=== PATIENT | male | born 1995 | race Caucasian/White ===

== ENCOUNTER 2020-10-27 10:43 | Outpatient (CLI) | payer OTHER, SELFPAY ==
--- NOTE | ~2020-10-27 | XR_ITS ---
XR abdomen/kub 1V 10/27/2020 11:00 INDICATION: Constipation TECHNIQUE: KUB COMPARISON: None FINDINGS: Bowel gas pattern is normal. Large amount of retained fecal material in the colon. There is no evidence of free air, mass, organomegaly, ascites or obstruction. No abnormal calculi are seen. The bones appear intact. IMPRESSION: 1: No acute abdominal abnormality identified. Reviewed, dictated and finalized at location B.
== END 2020-10-27 10:44 | disposition home or self-care (01) ==
PROVIDERS: PCP Family Medicine; Visit Provider Family Medicine
DX: K59.00 Constipation, unspecified (principal)
CPT/HCPCS: 74018

== ENCOUNTER 2021-02-15 17:47 | Emergency (ER) | payer OTHER, SELFPAY ==
[2021-02-15 17:49] VITALS: BP 130/83; PULSE 88; RESP 16; TEMP 36.7; O2SAT 98
[2021-02-15 18:32] VITALS: BP 136/80; PULSE 88; RESP 18; TEMP 36.8; O2SAT 99
--- NOTE | 2021-02-15 19:43 | PC.NURSE ---
Pt ambulate in the hallway with SpO2, maintains 99% throughout walk and with conversation.
--- NOTE | 2021-02-15 20:22 | ED.GENADULT ---
HPI - General Adult General Chief complaint: Headache <Eric Moffett PA-C - Last Filed: 02/15/21 22:11> Stated complaint: headache x 1 yr <Eric Moffett PA-C - Last Filed: 02/15/21 22:11> Time Seen by Provider: 02/15/21 18:44 <Eric Moffett PA-C - Last Filed: 02/15/21 22:11> Source: patient <MARCY Benitez Last Filed: 02/15/21 22:11> Mode of arrival: ambulatory <MARCY Benitez Last Filed: 02/15/21 22:11> Limitations: no limitations <MARCY Benitez Last Filed: 02/15/21 22:11> History of Present Illness HPI narrative: Patient presents for evaluation stating that when he talks he feels as if he is not getting enough oxygen to his brain. Patient states that he has been having the sensation for over a year. Patient reports that he has seen his primary care provider regarding his concern and has been diagnosed with anxiety. Patient states that his anxiety medications have been increased which has increased his feelings of decreased oxygenation with conversation. Patient denies any syncope, chest pain. Patient denies any head trauma. Patient denies any symptoms at rest. Patient denies any neurological deficits. <Eric Moffett PA-C - Last Filed: 02/15/21 22:11> Related Data Home medications: Home Medications Medication Instructions Recorded Confirmed risperidone 0.25 mg tablet 0.25 mg PO DAILY 01/18/21 01/18/21 fluoxetine 40 mg PO DAILY 02/15/21 <Eric Moffett PA-C - Last Filed: 02/15/21 22:11> Allergies/adverse reactions: Allergies Allergy/AdvReac Type Severity Reaction Status Date / Time No Known Allergies Allergy Verified 01/18/21 14:01 <MARCY Benitez Last Filed: 02/15/21 22:11> Review of Systems Review of Systems: CONSTITUTIONAL: Denies fever, chills, or sweats. EYES: Denies visual changes, redness, or discharge. ENT: Denies rhinorrhea, congestion, sore throat, or otalgia. CARDIOVASCULAR: Denies chest pain, palpitations, or edema. RESPIRATORY: Denies cough or dyspnea. GASTROINTESTINAL: Denies abdominal pain, nausea, vomiting, or diarrhea. GENITOURINARY: Denies dysuria or hematuria. SKIN: Denies rash or itching. MUSCULOSKELETAL: Denies back pain, joint pain, or myalgia. NEUROLOGIC: Denies headache, numbness, dizziness, or weakness. PSYCHIATRIC: Denies anxiety or depression. <Eric Moffett PA-C - Last Filed: 02/15/21 22:11> [facility] Past Medical History Medical History: Medical History Urinary frequency <Eric Moffett PA-C - Last Filed: 02/15/21 22:11> Family History Family History: Family History Mother Family history of elevated blood lipids, Onset Age: 46 Father Family history of diabetes mellitus in first degree relative, Onset Age: 48 <Eric Moffett PA-C - Last Filed: 02/15/21 22:11> Social History Social History: Social History Tobacco type: cigarettes Second hand tobacco smoke exposure: No Smoking end date: 05/07/13 Alcohol intake: never Substance use: never Substance use type: does not use Gender identity (if verbalized by the patient): Male <Eric Moffett PA-C - Last Filed: 02/15/21 22:11> Exam Narrative: GENERAL: Well-appearing, well-nourished, and in no acute distress. HEAD: Normocephalic, atraumatic. EYES: PERRLA and EOMI. ENT: Nares clear, no rhinorrhea or epistaxis. Mucous membranes moist. Oropharynx without tonsillar hypertrophy exudate or other lesions. Bilateral TMs pearly rosario nonbulging NECK: Supple. No adenopathy or masses. ROM intact. CHEST: Clear to auscultation. No respiratory distress. No wheezes rales or rhonchi. Speaks in complete sentences. No tachypnea or signs of respiratory distress. HEART: Regular rate and rhythm. No murmur heard. Normal peripheral pulses. EXTREMITIES
[2021-02-15 20:35] VITALS: RESP 18; O2SAT 99
== END 2021-02-15 20:35 | disposition home or self-care (01) ==
PROVIDERS: Emergency Provider Emergency Medicine; PCP Family Medicine
DX: R51.9 Headache, unspecified (principal); F41.9 Anxiety disorder, unspecified
CPT/HCPCS: 99283

== ENCOUNTER → 2021-06-03 09:30 | Outpatient (CLI) | payer BC, SELFPAY ==
--- NOTE | ~2021-06-03 | XR_ITS ---
EXAMINATION: XR lumbar spine 2-3V EXAM DATE: 06/03/2021 10:57 INDICATION: Low back pain . TECHNIQUE: Lumber spine frontal, lateral, lateral L5-S1 projections for interpretation. There is no prior study for comparison. FINDINGS: The vertebral bodies are aligned in the AP dimension. Vertebral body and disc heights are well-maintained. No spondylolysis. Paraspinal soft tissue is unremarkable. Sacrum, sacroiliac joints, sacral arcuate lines are intact. Probably mild lower lumbar facet arthropathy. IMPRESSION: Probable mild lower lumbar facet arthropathy. Reviewed, dictated and finalized at location A. IC COORDINATOR
--- NOTE | ~2021-06-03 | XR_ITS ---
EXAMINATION: XR thoracic spine 3V EXAM DATE: 06/03/2021 10:56 INDICATION: M54.6 - Pain in thoracic spine. TECHNIQUE: Frontal and lateral projections of the thoracic spine as well as lateral swimmers projecti on of the upper thoracic spine for interpretation. There is no prior study for comparison. FINDINGS: There is mild mid thoracic dextroscoliosis. The vertebral bodies are aligned in the AP dim ension. Vertebral body and disc heights are well-maintained. Paraspinal soft tissue is unremarkable. There are no bony erosions identified. IMPRESSION: Mild thoracic dextroscoliosis. Reviewed, dictated and finalized at location A. OR JAVA SOFTWARE ENGINEER
== END ==
PROVIDERS: PCP Family Medicine; Visit Provider Family Medicine
DX: M54.50 Low back pain, unspecified (principal); M54.6 Pain in thoracic spine
CPT/HCPCS: 72072; 72100

== ENCOUNTER 2021-06-03 23:06 | Emergency (ER) | payer BC, SELFPAY ==
--- NOTE | ~2021-06-03 | CT_ITS ---
EXAMINATION: CTA chest PE protocol DATE: 06/04/2021 08:41 INDICATION: Left-sided pleuritic chest pain. TECHNIQUE: Computed tomography angiography (CTA) of the chest was performed with 100 mL Omnipaque-350 intravenous contrast timed to evaluate the pulmonary arteries. Coronal maximum intensity projection 3D-reconstructions were created by the technologist. Automated exposure control and iterative reconst ruction technique were employed. The dose-length product was 170.20 mGy-cm. COMPARISON: Chest 2 views 06/04/2021 FINDINGS: The lungs demonstrate minimal atelectasis. No pleural effusion. The heart size is normal. N o pericardial effusion. There is no pulmonary embolus. There is levoscoliosis of upper thoracic spine , dextrocurvature of mid thoracic spine, and levocurvature of thoracolumbar spine. IMPRESSION: 1. No pulmonary embolus. Reviewed, dictated and finalized at location A. DIE MAKER IMPRESSION: 1. No pulmonary embolus.
--- NOTE | ~2021-06-03 | XR_ITS ---
EXAMINATION: XR chest 2V DATE: 06/04/2021 02:33 INDICATION: Left rib pain. Dyspnea. TECHNIQUE: Frontal and lateral views of the chest were obtained. COMPARISON: Chest 2 views 07/08/2014 FINDINGS: The chest demonstrates clear lungs without pneumonia, pleural effusion, or pneumothorax. Th e heart size is normal. IMPRESSION: 1. No acute cardiopulmonary disease. Reviewed, dictated and finalized at location A. OMER LEADER
[2021-06-04 01:46] VITALS: BP 135/92; PULSE 130; RESP 18; TEMP 36.6; O2SAT 97
[2021-06-04 05:47] VITALS: BP 116/96; PULSE 87; RESP 16; O2SAT 100
--- NOTE | 2021-06-04 06:22 | ECG_ITS ---
Measurements Intervals [place] Rate: 85 P: 77 AK: 146 QRS: 64 QRSD: 101 T: 48 QT: 345 QTc: 412 Interpretive Statements SINUS RHYTHM INCOMPLETE RIGHT BUNDLE BRANCH BLOCK ST ELEVATION IN DIFFUSE LEADS- PROBABLY EARLY REPOLARIZATION ABNORMALITY BASELINE ARTIFACT- I, II, III, AVR, AVL, AVF, V1-V3 BORDERLINE ECG Electronically Signed On 06-04-2021 8:02:00 RUFFLING MACHINE OPERATOR by Mesfin Lares D.O.
--- NOTE | 2021-06-04 06:23 | ED.GENADULT ---
HPI - General Adult General Chief complaint: Back Pain/Injury Stated complaint: back swelling Time Seen by Provider: 06/04/21 06:15 History of Present Illness HPI narrative: Patient is a 26-year-old gentleman who presents the emergency department with chief complaint of back and chest pain. The patient reports that for the last week he has had pain in the paraspinous muscles of his back. The patient states he saw his primary care physician who started him on steroids and muscle relaxers patient states that he has noticed that the area of his back is been swollen there and reports that it hurts now whenever he takes a deep breath. The patient states he believes this began whenever he was doing prior and was forcefully bowing forward. Patient states that the pain is sharp reports that it is worsened with inspiration and improved with rest. Related Data Home Medications Medication Instructions Recorded Confirmed risperidone 0.25 mg tablet 0.25 mg PO DAILY 01/18/21 05/30/21 fluoxetine 40 mg PO DAILY 02/15/21 05/30/21 Allergies Allergy/AdvReac Type Severity Reaction Status Date / Time No Known Allergies Allergy Verified 06/04/21 05:49 Review of Systems Review of Systems: A 10 system review of systems was completed on the patient and is negative except for what is stated in the HPI. Nursing and ancillary documentation was reviewed. [facility] Past Medical History Medical History Urinary frequency Family History Family History Mother Family history of elevated blood lipids, Onset Age: 46 Father Family history of diabetes mellitus in first degree relative, Onset Age: 48 Social History Social History (Updated 05/30/21 @ 10:52 by Ana Viera) Social History: Single Smoking status: Former smoker Tobacco type: cigarettes Second hand tobacco smoke exposure: No Smoking end date: 05/07/13 Alcohol intake: never Substance use: never Substance use type: does not use Additional occupation/education comments: Pt had to drop out of school due to health issues. Gender identity (if verbalized by the patient): Male Sexual Orientation (if Verbalized by the Patient): Straight or Heterosexual Course Vital Signs Vital signs: Vital Signs Temperature 36.6 C 06/04/21 01:46 Pulse Rate 130 H 06/04/21 01:46 Respiratory Rate 18 06/04/21 01:46 Blood Pressure 135/92 H 06/04/21 01:46 Pulse Oximetry 97 06/04/21 01:46 Temperature 36.6 C 06/04/21 01:46 Pulse Rate 87 06/04/21 05:47 Respiratory Rate 16 06/04/21 05:47 Blood Pressure 116/96 H 06/04/21 05:47 Pulse Oximetry 100 06/04/21 05:47 Medical Decision Making Vital Signs Vital Signs: Vital Signs Temperature 36.6 C 06/04/21 01:46 Pulse Rate 130 H 06/04/21 01:46 Respiratory Rate 18 06/04/21 01:46 Blood Pressure 135/92 H 06/04/21 01:46 Pulse Oximetry 97 06/04/21 01:46 Temperature 36.6 C 06/04/21 01:46 Pulse Rate 87 06/04/21 05:47 Respiratory Rate 16 06/04/21 05:47 Blood Pressure 116/96 H 06/04/21 05:47 Pulse Oximetry 100 06/04/21 05:47 Discharge Plan Discharge Prescriptions: No Action risperidone 0.25 mg tablet 0.25 mg PO DAILY RF: 0 methylprednisolone [Medrol (Dionisio)] 4 mg tablets,dose pack See Rx Instructions PO PER PKG DIR 6 Days Qty: 21 RF: 0 cyclobenzaprine 10 mg tablet 10 mg PO TID PRN (Reason: muscle spasm) Qty: 21 RF: 0 fluoxetine 20 mg tablet 40 mg PO DAILY RF: 0
[2021-06-04 06:50] LABS: Basophils Absolute Auto 0.1 K/mm3 (0.0-0.1); Basophils Percent Auto 0.8 % (0.2-1.2); Eosinophils Absolute Auto 0.1 K/mm3 (0-0.3); Eosinophils Percent Auto 1.1 % (0-4.4); Hematocrit 45.9 % (42.0-52.0); Hemoglobin 16.5 g/dL (14.0-18.0); Immature Granulocyte Absolute 0.03 K/mm3 (0.00-0.031); Immature Granulocyte Percent A 0.3 % (0-0.5); Immature Platelet Fraction Pct 6.5 % (0.9-11.2); Lymphocytes Absolute Auto 2.11 K/mm3 (0.9-3.2); Lymphocytes Percent Auto 23.6 % (18.3-44.2); Mean Corpuscular HGB Conc 35.9 g/dl (32-36); Mean Corpuscular Hemoglobin 30.7 pg (26-34); Mean Corpuscular Volume 85.5 fl (80-100); Mean Platelet Volume 10.2 fl (7.4-10.4); Monocytes Absolute Auto 0.5 K/mm3 (0.1-0.6); Monocytes Percent Auto 5.5 % (2.6-8.5); Neutrophils Absolute Auto 6.1 K/mm3 (1.3-6.7); Neutrophils Percent Auto 68.7 % (45.5-73.1); Platelet Count Result 137 k/mm3 (150-375); Red Blood Count 5.37 M/mm3 (4.6-6.20); Red Cell Distribution Width 11.9 % (11.5-14.5); White Blood Count 8.9 K/mm3 (4.5-10.0)
[2021-06-04 06:55] LABS: Alanine Aminotransferase 14 U/L (4-50); Albumin Level 4.8 g/dL (3.5-5.1); Alkaline Phosphatase 44 U/L (38-126); Anion Gap 6 mmol/L (8-16); Aspartate Amino Transferase 19 U/L (17-59); Bilirubin,Total 0.7 mg/dL (0.2-1.3); Blood Urea Nitrogen 17 mg/dL (9-20); Calcium 9.5 mg/dL (8.4-10.2); Carbon Dioxide 26 mmol/L (22-30); Chloride 104 mmol/L (98-107); Estimated CRCL calculation 102 ml/min; Estimated Glomerular Filt Rate > 60; Glucose 97 mg/dL (65-110); Sodium 136 mmol/L (137-145)
[2021-06-04 06:57] LABS: INR 1.2; Prothrombin Time 14.6 Seconds (11.1-14.7)
[2021-06-04 06:58] LABS: Partial Thromboplastin Time 33.3 SECONDS (22.3-36.8)
[2021-06-04 07:04] LABS: NT Pro B Type Natriuretic Pept 41 pg/mL (5-100)
[2021-06-04 07:06] LABS: Troponin I < 0.012 ng/mL (0.000-0.034)
[2021-06-04 07:14] VITALS: BP 128/100; PULSE 92; RESP 18; O2SAT 100
[2021-06-04 09:45] VITALS: BP 123/85; PULSE 102; RESP 18; O2SAT 100
== END 2021-06-04 09:47 | disposition home or self-care (01) ==
PROVIDERS: Emergency Provider Emergency Medicine; PCP Family Medicine
DX: R10.9 Unspecified abdominal pain (principal); M41.9 Scoliosis, unspecified; I45.10 Unspecified right bundle-branch block; R94.31 Abnormal electrocardiogram [ECG] [EKG]
CPT/HCPCS: 36415; 71046; 71275; 80053; 83880; 84484; 85025; 85055; 85610; 85730; 87081; 87880; 93005; 99284; Q9967

== ENCOUNTER → 2021-08-31 13:33 | Outpatient (CLI) | payer BC, SELFPAY ==
--- NOTE | ~2021-08-31 | XR_ITS ---
EXAMINATION: XR lumbar spine 2-3V DATE: 08/31/2021 14:10 INDICATION: Low back pain TECHNIQUE: Anteroposterior and lateral views of the lumbar spine, and cone-down lateral view of the l umbosacral junction were obtained. COMPARISON: 06/03/2021 FINDINGS: There are 20 degrees of thoracolumbar levoscoliosis. Bone alignment is normal. There is no fracture. The intervertebral disc spaces are maintained. The bowel gas pattern is normal. The visuali zed lung bases are clear. IMPRESSION: 1. No acute osseous abnormality. 2. 20 degrees of thoracolumbar levoscoliosis. Reviewed, dictated and finalized at location F.
--- NOTE | ~2021-08-31 | XR_ITS ---
EXAMINATION: XR thoracic spine 3V DATE: 08/31/2021 14:10 INDICATION: Dorsalgia unspecified TECHNIQUE: AP, lateral and lateral swimmer's views of the thoracic spine were obtained. COMPARISON: 06/03/2021 FINDINGS: There is mild S-shaped curvature of the spine. Bone alignment is normal. There is no fractu re. The intervertebral disc spaces are maintained. IMPRESSION: 1. No acute osseous abnormality. Reviewed, dictated and finalized at location F.
== END ==
PROVIDERS: PCP Family Medicine; Visit Provider Physician Assistant
DX: M54.9 Dorsalgia, unspecified (principal)
CPT/HCPCS: 72072; 72100

== ENCOUNTER 2021-10-01 14:56 | Emergency (ER) | payer BC, SELFPAY ==
--- NOTE | ~2021-10-01 | XR_ITS ---
EXAMINATION: XR abdomen obstructive series DATE: 10/01/2021 15:51 INDICATION: Generalized abdominal pain and constipation TECHNIQUE: Supine and upright views of the abdomen. FINDINGS: 10/27/2020 The visualized lung parenchyma is normal.. There is a nonobstructive bowel gas pattern. Gas and stool are seen throughout the colon to the level of the rectum. There is no free air. There is moderate c olonic fecal loading. IMPRESSION: 1. Moderate colonic fecal loading. Reviewed, dictated and finalized at location A.
[2021-10-01 14:58] VITALS: BP 144/88; PULSE 107; RESP 18; TEMP 36.9; O2SAT 98
--- NOTE | 2021-10-01 15:33 | ED.GENADULT ---
HPI - General Adult General Chief complaint: Abdominal Pain Stated complaint: abdominal pain - malnutrition Time Seen by Provider: 10/01/21 15:15 History of Present Illness HPI narrative: 26-year-old male presenting to the emergency department for evaluation of generalized abdominal pain. Patient states for the last 2 months he has been taking Nexium due to GERD thast was worse with eating. Patient had previously been scheduled to have follow-up with Dr. Armando per GI. Patient states a few days ago he did cancel his appointment because he was feeling improved regarding his GERD symptoms. Patient states he began increasing his p.o. intake approximately 2 days ago and has since had increased lower abdominal pain. Patient states the pain is not worsened with movement, eating or drinking,. Patient states he does have some mild constipation. Related Data Home Medications Medication Instructions Recorded Confirmed fluoxetine 20 mg tablet 40 mg PO DAILY 02/15/21 09/28/21 ziprasidone HCl 20 mg capsule 40 mg PO DAILY 09/28/21 09/28/21 Allergies Allergy/AdvReac Type Severity Reaction Status Date / Time No Known Allergies Allergy Verified 09/28/21 13:01 Review of Systems Review of Systems: CONSTITUTIONAL: Denies fever, chills, or sweats. EYES: Denies visual changes, redness, or discharge. ENT: Denies rhinorrhea, congestion, sore throat, or otalgia. CARDIOVASCULAR: Denies chest pain, palpitations, or edema. RESPIRATORY: Denies cough or dyspnea. GASTROINTESTINAL: see HPI GENITOURINARY: Denies dysuria or hematuria. SKIN: Denies rash or itching. MUSCULOSKELETAL: Denies back pain, joint pain, or myalgia. NEUROLOGIC: Denies headache, numbness, or weakness. [facility] Past Medical History Medical History Urinary frequency Family History Family History Mother Family history of elevated blood lipids, Onset Age: 46 Father Family history of diabetes mellitus in first degree relative, Onset Age: 48 Social History Social History Social History: Single Smoking status: Former smoker Tobacco type: cigarettes Second hand tobacco smoke exposure: No Smoking end date: 05/07/13 Alcohol intake: never Substance use: never Substance use type: does not use Additional occupation/education comments: Pt had to drop out of school due to health issues. Gender identity (if verbalized by the patient): Male Sexual Orientation (if Verbalized by the Patient): Straight or Heterosexual Spiritual care concerns: No Exam Narrative: APPEARANCE: Well appearing, no pain, no distress, well-nourished. HEAD: normocephalic, atraumatic. EYES: PERRLA/EOMI, conjunctivae clear. NECK: Supple. No adenopathy, no masses. RESPIRATORY: Airway patent, respirations nonlabored. Clear to auscultation bilaterally, no rales, rhonchi, wheezing. CARDIOVASCULAR: Regular rate and rhythm without murmurs rubs or gallops. ABDOMINAL: Soft, nontender, nondistended, normal bowel sounds MUSCULOSKELETAL: Moves all extremities. Strength/ROM intact, No edema, No calf tenderness. NEURO: Alert. Cranial nerves II through XII intact. Grossly intact SKIN: Warm, dry. Normal Color PSYCHIATRIC: Normal affect/mood. Course Course Emergency Course: Patient was updated the results of his labs and imaging. Imaging did show constipation. Patient was educated on care for the constipation at home. Patient was also encouraged to have close follow-up with GI as previously scheduled. Patient also educated on reasons to return to the emergency department. All questions and concerns were addressed. Patient was well-appearing at time of discharge from the emergency department. Vital Signs Vital signs: Vital Signs Temperature 98.5 F 10/01/21 14:58 Pulse Rate 107 H 10/01/21 14:58 Respiratory Rate 18 10/01/21 14:58
[2021-10-01 15:42] LABS: Basophils Absolute Auto 0.1 K/mm3 (0.0-0.1); Basophils Percent Auto 0.9 % (0.2-1.2); Eosinophils Absolute Auto 0.1 K/mm3 (0-0.3); Eosinophils Percent Auto 2.6 % (0-4.4); Hematocrit 43.9 % (42.0-52.0); Lymphocytes Percent Auto 23.9 % (18.3-44.2); Mean Corpuscular HGB Conc 34.2 g/dl (32-36); Mean Corpuscular Hemoglobin 29.8 pg (26-34); Mean Corpuscular Volume 87.3 fl (80-100); Mean Platelet Volume 10.2 fl (7.4-10.4); Monocytes Absolute Auto 0.4 K/mm3 (0.1-0.6); Neutrophils Absolute Auto 3.6 K/mm3 (1.3-6.7); Neutrophils Percent Auto 65.6 % (45.5-73.1); Platelet Count Result 201 k/mm3 (150-375); Red Blood Count 5.03 M/mm3 (4.6-6.20); Red Cell Distribution Width 12.2 % (11.5-14.5); White Blood Count 5.4 K/mm3 (4.5-10.0)
--- NOTE | 2021-10-01 15:45 | PC.NURSE ---
Pt to CT scan via stretcher at this time.
[2021-10-01 15:52] LABS: Lactic Acid Reflex 1.3 mmol/L (0.7-2.0)
[2021-10-01 15:53] LABS: Alanine Aminotransferase 14 U/L (6-50); Albumin Level 4.7 g/dL (3.5-5.1); Alkaline Phosphatase 46 U/L (38-126); Anion Gap 9 mmol/L (8-16); Aspartate Amino Transferase 22 U/L (17-59); Bilirubin,Total 0.4 mg/dL (0.2-1.3); Blood Urea Nitrogen 21 mg/dL (9-20); Calcium 8.9 mg/dL (8.4-10.2); Carbon Dioxide 29 mmol/L (22-30); Chloride 103 mmol/L (98-107); Estimated CRCL calculation 97 ml/min; Estimated Glomerular Filt Rate > 60; Glucose 113 mg/dL (65-110); Lipase 69 U/L (23-300); Sodium 141 mmol/L (137-145)
[2021-10-01 16:29] VITALS: BP 132/89; PULSE 98; RESP 17; O2SAT 99
== END 2021-10-01 16:32 | disposition home or self-care (01) ==
PROVIDERS: Emergency Provider Emergency Medicine; PCP Family Medicine
DX: K59.00 Constipation, unspecified (principal); K21.9 Gastro-esophageal reflux disease without esophagitis; Z87.891 Personal history of nicotine dependence
CPT/HCPCS: 36415; 74019; 80053; 83605; 83690; 85025; 99283

== ENCOUNTER 2021-10-02 12:41 | Emergency (ER) | payer BC, SELFPAY ==
--- NOTE | ~2021-10-02 | CT_ITS ---
EXAMINATION: CT abdomen pelvis wo con DATE: 10/02/2021 14:02 INDICATION: Abdominal pain, cramping, constipation TECHNIQUE: Computed tomography (CT) of the abdomen and pelvis was performed without intravenous contr ast. Automated exposure control and iterative reconstruction technique were employed. Exam dose: 172 .99 mGy-cm total exam DLP. COMPARISON: 10/01/2021 obstructive series FINDINGS: The lung bases are clear of infiltrate or consolidation. Normal heart size. No pericardial or pleural effusion. The liver, gallbladder, bile ducts, spleen, pancreas, pancreatic duct, and adrenal glands and kidneys are unremarkable with the exception of a nonobstructing 4 mm lower pole right renal calculus. No ure teral calculus or hydroureteronephrosis. Mild prostate calcification. The urinary bladder is unremark able. Normal appendix. There is bilateral mild fecal material and some liquid stool within the colon. No bowel obstruction, pneumatosis or intraperitoneal free air is evident. Included skeletal structures are unremarkable. IMPRESSION: Normal appendix Prominent amount of fecal material and some liquid stool within the colon; no bowel obstruction or fr ee air is detected 4 mm nonobstructing lower pole right renal calculus Reviewed, dictated and finalized at Location A. Reviewed, dictated and finalized at location A. IMPRESSION: Normal appendix Prominent amount of fecal material and some liquid stool within the colon; no b owel obstruction or free air is detected 4 mm nonobstructing lower pole right renal calculus
[2021-10-02 12:43] VITALS: BP 146/72; PULSE 98; RESP 20; TEMP 36.4; O2SAT 98
[2021-10-02] MEDS: SODIUM CHLORIDE 0.9% IV 1,000 ML 999 ML IV CONT ×2 (13:18→14:17)
--- NOTE | 2021-10-02 13:18 | ED.GENADULT ---
HPI - General Adult General Chief complaint: Abdominal Pain Stated complaint: constipation Time Seen by Provider: 10/02/21 12:54 History of Present Illness HPI narrative: 26-year-old male with history of Asperger's, autism, scoliosis and GERD presenting to the emergency department for evaluation of worsening constipation. Patient was evaluated in the emergency department yesterday for persistent constipation. Patient states he had recent issues with gastric reflux and had been taking Nexium and states he had had a significantly decreased diet. Patient states that last week he began feeling improved regarding the gastric reflux and had increased his dietary intake. Patient states since increasing his dietary intake he has increased his protein intake but does not sound like he has increased his fiber or water intake. Yesterday's patient's labs were within normal limits. Patient did have an x-ray showing fecal loading. Patient was educated on the use of MiraLAX and the benefit of increasing his fiber and water intake. Patient states he did not start MiraLAX but did try an enema at home. Patient states that he has had increased abdominal cramping and did not have any significant results from the enema or suppository. Related Data Home Medications Medication Instructions Recorded Confirmed fluoxetine 20 mg tablet 40 mg PO DAILY 02/15/21 09/28/21 ziprasidone HCl 20 mg capsule 40 mg PO DAILY 09/28/21 09/28/21 Allergies Allergy/AdvReac Type Severity Reaction Status Date / Time No Known Allergies Allergy Verified 10/02/21 12:51 Review of Systems Review of Systems: CONSTITUTIONAL: Denies fever, chills, or sweats. EYES: Denies visual changes, redness, or discharge. ENT: Denies rhinorrhea, congestion, sore throat, or otalgia. CARDIOVASCULAR: Denies chest pain, palpitations, or edema. RESPIRATORY: Denies cough or dyspnea. GASTROINTESTINAL: Abdominal cramping and constipation GENITOURINARY: Denies dysuria or hematuria. SKIN: Denies rash or itching. MUSCULOSKELETAL: Denies back pain, joint pain, or myalgia. NEUROLOGIC: Denies headache, numbness, or weakness. [facility] Past Medical History Medical History Urinary frequency Family History Family History Mother Family history of elevated blood lipids, Onset Age: 46 Father Family history of diabetes mellitus in first degree relative, Onset Age: 48 Social History Social History Social History: Single Smoking status: Former smoker Tobacco type: cigarettes Second hand tobacco smoke exposure: No Smoking end date: 05/07/13 Alcohol intake: never Substance use: never Substance use type: does not use Additional occupation/education comments: Pt had to drop out of school due to health issues. Gender identity (if verbalized by the patient): Male Sexual Orientation (if Verbalized by the Patient): Straight or Heterosexual Spiritual care concerns: No Exam Narrative: APPEARANCE: Appears to be uncomfortable HEAD: normocephalic, atraumatic. EYES: PERRLA/EOMI, conjunctivae clear. NOSE: Normal no drainage THROAT: Pharynx clear, no exudate. NECK: Supple. No adenopathy, no masses. RESPIRATORY: Airway patent, respirations nonlabored. Clear to auscultation bilaterally, no rales, rhonchi, wheezing. CARDIOVASCULAR: Regular rate and rhythm without murmurs rubs or gallops. ABDOMINAL: Soft, nontender, normal bowel sounds MUSCULOSKELETAL: Moves all extremities. Strength/ROM intact, No edema, No calf tenderness. NEURO: Alert. Cranial nerves II through XII intact. Grossly intact SKIN: Warm, dry. Normal Color Course Course Emergency Course: Patient had a CT scan showing constipation without evidence of obstruction. Patient was afebrile. Patient had no leukocytosis. Electrolytes were within normal limits. Patient
[2021-10-02 13:19] LABS: Basophils Absolute Auto 0.1 K/mm3 (0.0-0.1); Basophils Percent Auto 0.7 % (0.2-1.2); Eosinophils Absolute Auto 0.1 K/mm3 (0-0.3); Eosinophils Percent Auto 1.7 % (0-4.4); Hematocrit 44.7 % (42.0-52.0); Hemoglobin 15.4 g/dL (14.0-18.0); Immature Granulocyte Absolute 0.02 K/mm3 (0.00-0.031); Immature Granulocyte Percent A 0.2 % (0-0.5); Lymphocytes Absolute Auto 1.03 K/mm3 (0.9-3.2); Lymphocytes Percent Auto 12.5 % (18.3-44.2); Mean Corpuscular HGB Conc 34.5 g/dl (32-36); Mean Corpuscular Hemoglobin 29.9 pg (26-34); Mean Corpuscular Volume 86.8 fl (80-100); Mean Platelet Volume 9.9 fl (7.4-10.4); Monocytes Absolute Auto 0.7 K/mm3 (0.1-0.6); Monocytes Percent Auto 8.4 % (2.6-8.5); Neutrophils Absolute Auto 6.3 K/mm3 (1.3-6.7); Neutrophils Percent Auto 76.5 % (45.5-73.1); Platelet Count Result 188 k/mm3 (150-375); Red Blood Count 5.15 M/mm3 (4.6-6.20); White Blood Count 8.3 K/mm3 (4.5-10.0)
[2021-10-02 13:28] LABS: Lactic Acid Reflex 1.7 mmol/L (0.7-2.0)
[2021-10-02 13:30] LABS: Alanine Aminotransferase 15 U/L (6-50); Alkaline Phosphatase 52 U/L (38-126); Anion Gap 8 mmol/L (8-16); Aspartate Amino Transferase 24 U/L (17-59); Bilirubin,Total 0.6 mg/dL (0.2-1.3); Blood Urea Nitrogen 19 mg/dL (9-20); Calcium 9.3 mg/dL (8.4-10.2); Carbon Dioxide 29 mmol/L (22-30); Chloride 102 mmol/L (98-107); Estimated CRCL calculation 97 ml/min; Estimated Glomerular Filt Rate > 60; Glucose 101 mg/dL (65-110); Lipase 47 U/L (23-300); Sodium 139 mmol/L (137-145)
[2021-10-02 13:31] LABS: Appearance Urine Clear (Clear); Bilirubin Urine Negative (Negative); Blood Urine Negative (Negative); Color Urine Yellow (Yellow); Glucose Urine UA Negative (Negative); Ketones Urine Trace mg/dL (Negative); Leukocyte Esterase Ur Negative LEU/UL (Negative); Nitrate Urine Negative (Negative); Protein Urine Negative (Negative); Urobilinogen Urine 0.2 mg/dL (<2.0)
[2021-10-02 14:06] LABS: Mucus Urine Rare /lpf; RBC Urine 0-2 /hpf (0-2)
[2021-10-02 14:09] LABS: Add Urine Microscopic? NO
[2021-10-02 14:17] VITALS: BP 150/98; PULSE 117; RESP 22; O2SAT 98
[2021-10-02] MEDS: MAGNESIUM CITRATE 300 ML BTL 150 ML PO (15:13)
[2021-10-02 16:16] VITALS: BP 129/84; PULSE 106; RESP 20; O2SAT 99
== END 2021-10-02 16:36 | disposition home or self-care (01) ==
PROVIDERS: Emergency Provider Emergency Medicine; PCP Family Medicine
DX: K59.00 Constipation, unspecified (principal); R10.9 Unspecified abdominal pain; F84.5 Asperger's syndrome; Z87.891 Personal history of nicotine dependence
CPT/HCPCS: 36415; 74176; 80053; 81003; 83605; 83690; 85025; 87086; 96360; 96361; 99284; A9270; J7030

== ENCOUNTER 2022-04-14 01:57 | Day surgery (SDC) | payer BC, SELFPAY ==
[2022-04-07 12:28] VITALS: BMI 19.7
--- NOTE | 2022-04-14 11:16 | PM.HPGS ---
History of Present Illness History of Present Illness Consent: Risks, benefits, and alternatives have been discussed and questions answered. Patient agrees to proceed with procedure. Chief complaint: GERD Narrative: Neeraj Calix is a 26 year old male With refractory reflux symptoms. He has been taking Nexium daily For the past 6 months. He states that he typically experiences burning sensation in his throat. This happened often at night and therefore he has raised the head of his bed. He has not regurgitated. Also, after meal he may have burning in the throat for up to 8 hours. He missed taking Nexium 1 day and then he was miserable for the next month with much worse symptoms. He denies dysphagia. Review of Systems Review of Systems: All systems reviewed & are unremarkable except as noted in HPI and below PMFSH Past Medical History Medical History Urinary frequency Family History Family History Mother Family history of elevated blood lipids, Onset Age: 46 Father Family history of diabetes mellitus in first degree relative, Onset Age: 48 Social History Social History Social History: Single Smoking status: Former smoker Tobacco type: cigarettes Second hand tobacco smoke exposure: No Smoking end date: 05/07/13 Alcohol intake: never Substance use: never Substance use type: does not use Living arrangements: with family Additional occupation/education comments: Pt had to drop out of school due to health issues. Gender identity (if verbalized by the patient): Male Sexual Orientation (if Verbalized by the Patient): Straight or Heterosexual Spiritual care concerns: No Meds Home Medications and Allergies Home Medications Medication Instructions Recorded Confirmed Type fluoxetine 20 mg tablet 20 mg PO DAILY 02/15/21 04/07/22 History lamotrigine 25 mg tablet 50 mg PO DAILY 04/07/22 04/07/22 History mirtazapine 15 mg tablet 15 mg PO HS 04/07/22 04/07/22 History quetiapine 50 mg tablet 200 mg PO HS 04/07/22 04/07/22 History Allergies Allergy/AdvReac Type Severity Reaction Status Date / Time No Known Allergies Allergy Verified 04/14/22 11:33 Exam Const: General: alert Orientation/consciousness: patient oriented x3 Resp: Auscultation: clear to auscultation bilaterally Cardio: Rhythm: regular rhythm GI: GI Palp: Yes Soft to palpation and No Tenderness to palpation present (GI) Neuro: General: patient oriented x3 Assessment and Plan Assessment and plan (1) GERD (gastroesophageal reflux disease): Code(s): K21.9 - Gastro-esophageal reflux disease without esophagitis Status: Acute Assessment and Plan: EGD with possible biopsy or dilatation or cautery.
[2022-04-14 11:34] VITALS: BP 137/86; PULSE 90; RESP 16; TEMP 36.1; O2SAT 100
[2022-04-14] MEDS: LACTATED RINGERS 1,000 ML 150 ML IV CONT (11:54)
--- NOTE | 2022-04-14 12:21 | WPDANESEPPF ---
Anes - Initial Pre Proc Eval Procedure: Operation Date: 04/14/22 13:00 Proposed Procedures p Esophagogastroduodenoscopy EGD - Chris Armando MD Date/Time: 04/14/22 12:21 Surgeon: Chris rAmando MD Pre Op Diagnosis: GERD Patient Data Age: 26 Gender: M Height: 1.83 m Weight: 66.9 kg Last Vital Signs Temp 97.0 F L 04/14/22 11:34 Pulse 90 04/14/22 11:34 Resp 16 04/14/22 11:34 BP 137/86 04/14/22 11:34 Pulse Ox 100 04/14/22 11:34 O2 Del Method Room Air 04/14/22 11:34 Allergies Allergy/AdvReac Type Severity Reaction Status Date / Time No Known Allergies Allergy Verified 04/14/22 11:33 Home Medications Medication Instructions Recorded Confirmed Type fluoxetine 20 mg tablet 20 mg PO DAILY 02/15/21 04/07/22 History lamotrigine 25 mg tablet 50 mg PO DAILY 04/07/22 04/07/22 History mirtazapine 15 mg tablet 15 mg PO HS 04/07/22 04/07/22 History quetiapine 50 mg tablet 200 mg PO HS 04/07/22 04/07/22 History Patient hx anesthesia problems: none Family hx anesthesia problems: none Results Review: All pre-operative results and documents have been reviewed as part of the pre-operative evaluation. [facility] Past Medical History Medical History Urinary frequency Family History Family History Mother Family history of elevated blood lipids, Onset Age: 46 Father Family history of diabetes mellitus in first degree relative, Onset Age: 48 Social History Social History Social History: Single Smoking status: Former smoker Tobacco type: cigarettes Second hand tobacco smoke exposure: No Smoking end date: 05/07/13 Alcohol intake: never Substance use: never Substance use type: does not use Living arrangements: with family Additional occupation/education comments: Pt had to drop out of school due to health issues. Gender identity (if verbalized by the patient): Male Sexual Orientation (if Verbalized by the Patient): Straight or Heterosexual Spiritual care concerns: No Anes - Eval Final PreProcedure Day of Procedure 04/14/22 12:21 Patient weight: normal Heart: regular rate and rhythm Lungs: clear to auscultation Airway: Mallampati scale class II Neurological: alert and oriented Last oral intake: >/= 8 hours ASA classification: II Emergent: no Anesthetic plan: proceed Anesthesia type and monitoring: general GIVS and standard monitoring Results Review: All pre-operative results and documents have been reviewed as part of the pre-operative evaluation. Informed Consent: The patient's anesthetic plan and its attendant risks and benefits were discussed with the patient/family/POA. Questions were solicited and answers provided to the satisfaction of the patient/family/POA.
[2022-04-14 12:56] VITALS: BP 96/61; PULSE 84; RESP 20; O2SAT 100
[2022-04-14 13:06] VITALS: BP 103/58; PULSE 81; RESP 18; O2SAT 100
[2022-04-14 13:16] VITALS: BP 120/79; PULSE 82; RESP 20; O2SAT 100
== END 2022-04-14 13:24 | disposition home or self-care (01) ==
PROVIDERS: PCP Family Medicine; Visit Provider Internal Medicine Gastroenterology
PROC: 0DJ08ZZ Inspection of Upper Intestinal Tract, Via Natural or Artificial Opening Endoscopic (ICD-10-PCS; CPT 43235; principal; 2022-04-14 13:00)
DX: K21.9 Gastro-esophageal reflux disease without esophagitis (principal); Z87.891 Personal history of nicotine dependence
CPT/HCPCS: 43239; 88305; J2704; J7120

== ENCOUNTER 2023-05-22 18:24 | Emergency (ER) | payer BC, MEDICAID, SELFPAY ==
--- NOTE | 2023-05-22 18:28 | ED.EXTPRO ---
HPI - Extremity Problem General Chief complaint: Extremity Injury, Upper Stated complaint: Shoulder/Neck pain Time Seen by Provider: 05/22/23 18:27 Source: patient Mode of arrival: ambulatory Limitations: no limitations History of Present Illness HPI Narrative: Neeraj is a 19-year-old male patient presenting to the clinic today with complaints of posterior shoulder and neck pain. He reports symptoms have been going on for a few weeks however over the last week it has gotten worse. Denies any injury or at any heavy lifting. States he is currently unemployed. Has pain over the left trapezius area that is radiating into his neck. Related Data Home Medications Medication Instructions Recorded Confirmed fluoxetine 20 mg tablet 20 mg PO DAILY 02/15/21 05/22/23 Allergies Allergy/AdvReac Type Severity Reaction Status Date / Time No Known Allergies Allergy Verified 05/22/23 18:37 Review of Systems Review of Systems: Pertinent positives per HPI. Patient denies any fever, chills, rash, headache, visual changes, dizziness, cough, runny nose, sore throat, shortness of breath, chest pain, palpitations, nausea, vomiting, diarrhea, constipation, abdominal pain, or any urinary issues. [facility] Past Medical History Medical History Urinary frequency Family History Family History Mother Family history of elevated blood lipids, Onset Age: 46 Father Family history of diabetes mellitus in first degree relative, Onset Age: 48 Social History Social History Social History: Single Smoking status: Former smoker Tobacco type: cigarettes Second hand tobacco smoke exposure: No Smoking end date: 05/07/13 Alcohol intake: never Substance use: never Substance use type: does not use Living arrangements: with family Occupation/Education: unemployed Additional occupation/education comments: Pt had to drop out of school due to health issues. Gender identity (if verbalized by the patient): Male Sexual Orientation (if Verbalized by the Patient): Straight or Heterosexual Spiritual care concerns: No Comments At the time of my signature, I reviewed and agree with the nursing past medical, surgical, social, and family history. There is no relevant family history pertinent to the patient complaint. Exam Narrative: General: Well-developed, well nourished, in no apparent distress Head: Normocephalic, atraumatic. Cardio: Regular rate and rhythm, s1 and s2 normal, no murmur appreciated. Resp: Clear to auscultation bilaterally, no rhonchi, rales, wheezing or rubs. Musculoskeletal: No deformity, tender to palpation over the left trapezius musculature radiating into the left posterior/lateral neck, pain with turning his head to the right against resistance, grossly normal range of motion, muscle strength strong and equal, peripheral pulse strong, no edema, no cyanosis, normal gait and station Course Course Emergency Course: Portions of this record may have been created with voice recognition software. Level of Care: Express Care Visit Vital Signs Vital signs: Vital signs reviewed MDM - Extremity (Nontraumatic) MDM Narrative Medical decision making narrative: At the time of visit patient is resting comfortably on the exam table. Patient appears to be nontoxic. I suspect patient has a trapezius muscle strain to the left. Prescription for naproxen and baclofen was sent to the pharmacy. Supportive measures were discussed with the patient and they voiced understanding discharge instructions and agrees to treatment plan. Return precautions reviewed Differential Diagnosis Differential diagnosis: Likely other (Cervical muscle strain, trapezius muscle strain, shoulder sprain, tendinitis) Discharge Plan Discharge Clinical Impression: S
[2023-05-22 18:34] VITALS: BP 127/92; PULSE 88; RESP 16; TEMP 36.6; O2SAT 98
== END 2023-05-22 18:45 | disposition home or self-care (01) ==
PROVIDERS: Emergency Provider Nurse Practitioner Family
DX: S16.1XXA Strain of muscle, fascia and tendon at neck level, initial encounter (principal); X58.XXXA Exposure to other specified factors, initial encounter; Z87.891 Personal history of nicotine dependence
CPT/HCPCS: 99213; G0463

== ENCOUNTER 2023-08-27 14:36 | Emergency (ER) | payer OTHER, SELFPAY ==
--- NOTE | ~2023-08-27 | XR_ITS ---
EXAMINATION: XR chest 2V Exam Date/Time: 08/27/2023 14:50 CDT HISTORY: LEFT CP/SHALLOW BREATHING Comparison: 06/04/2021, report only. RESULT: Lines, tubes, and devices: None. Lungs and pleura: Clear. Cardiomediastinal silhouette: Stable. Other: No acute osseous or upper abdominal finding. Mild scoliosis. IMPRESSION: No acute cardiopulmonary process. Reviewed, dictated and finalized at location K.
[2023-08-27 14:37] VITALS: BP 147/81; PULSE 85; RESP 18; TEMP 36.4; O2SAT 99
--- NOTE | 2023-08-27 14:38 | ECG_ITS ---
SEE SCANNED COPY FOR CONFIRMED REPORT MTDD
[2023-08-27 15:00] LABS: Basophils Percent Auto 0.7 % (0.2-1.2); Eosinophils Absolute Auto 0.2 K/mm3 (0-0.3); Eosinophils Percent Auto 3.3 % (0-4.4); Hematocrit 46.4 % (42.0-52.0); Hemoglobin 16.4 g/dL (14.0-18.0); Immature Granulocyte Absolute 0.02 K/mm3 (0.00-0.031); Immature Granulocyte Percent A 0.4 % (0-0.5); Lymphocytes Absolute Auto 1.66 K/mm3 (0.9-3.2); Lymphocytes Percent Auto 30.1 % (18.3-44.2); Mean Corpuscular HGB Conc 35.3 g/dl (32-36); Mean Corpuscular Hemoglobin 29.1 pg (26-34); Mean Corpuscular Volume 82.3 fl (80-100); Mean Platelet Volume 9.6 fl (7.4-10.4); Monocytes Absolute Auto 0.3 K/mm3 (0.1-0.6); Monocytes Percent Auto 5.8 % (2.6-8.5); Neutrophils Absolute Auto 3.3 K/mm3 (1.3-6.7); Neutrophils Percent Auto 59.7 % (45.5-73.1); Platelet Count Result 251 k/mm3 (150-375); Red Blood Count 5.64 M/mm3 (4.6-6.20); Red Cell Distribution Width 12.1 % (11.5-14.5); White Blood Count 5.5 K/mm3 (4.5-10.0)
[2023-08-27 15:11] LABS: INR 1.1; Prothrombin Time 14.2 Seconds (11.1-14.7)
[2023-08-27 15:12] LABS: Partial Thromboplastin Time 34.4 Seconds (22.3-36.8)
[2023-08-27 15:30] LABS: Alanine Aminotransferase 21 U/L (6-50); Albumin Level 4.9 g/dL (3.5-5.1); Alkaline Phosphatase 56 U/L (38-126); Anion Gap 4 mmol/L (4-12); Aspartate Amino Transferase 24 U/L (17-59); Bilirubin,Total 0.6 mg/dL (0.2-1.3); Blood Urea Nitrogen 16 mg/dL (9-20); Calcium 9.5 mg/dL (8.4-10.2); Carbon Dioxide 32 mmol/L (22-30); Chloride 103 mmol/L (98-107); Estimated CRCL calculation 106 ml/min; Estimated Glomerular Filt Rate > 60; Glucose 90 mg/dL (65-110); Lipase 59 U/L (23-300); Potassium 3.8 mmol/L (3.4-5.0); Sodium 139 mmol/L (137-145)
[2023-08-27 15:41] LABS: Troponin I < 0.012 ng/mL (0.000-0.034)
--- NOTE | 2023-08-27 15:53 | ED.GENADULT ---
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 He comes in today because he started to have chest pain to the left side of his chest that comes and goes. Dr. Urban Moreira is his PCP No prior cardiac hx. GENERAL: Well-appearing, well-nourished, and in no acute distress. HEAD: Normocephalic, atraumatic. CHEST: Clear to auscultation. ?No respiratory distress. HEART: Regular rate and rhythm.? NEURO: ?Alert and oriented x3. Patient screened in triage and initial orders placed.? ?Additional care and disposition to be based upon?diagnostic testing and treatment. <Lubna Zayas September, [employer]OUSING [employer]ATION - Last Filed: 08/27/23 16:00> History of Present Illness HPI narrative: Patient 28-year-old gentleman presents emergency department with chief complaint of chest discomfort. Patient reports for about 2 weeks he has had intermittent discomfort in the left side of his chest the patient states that it is like a sharp type pain patient reports that last for a few seconds patient reports he has no prior cardiac history reports he has history of autism and has tick <Bhupendra Echeverria MD - Last Filed: 08/27/23 21:01> Related Data Home medications: Home Medications Medication Instructions Recorded Confirmed fluoxetine 20 mg tablet 20 mg PO DAILY 02/15/21 05/22/23 <Lubna Zayas September, [employer]OUSING [employer]ATION - Last Filed: 08/27/23 16:00> Allergies/adverse reactions: Allergies Allergy/AdvReac Type Severity Reaction Status Date / Time No Known Allergies Allergy Verified 08/27/23 14:43 <Lubna Zayas September,N - Last Filed: 08/27/23 16:00> Review of Systems Review of Systems: A 10 system review of systems was completed on the patient and is negative except for what is stated in the HPI. Nursing and ancillary documentation was reviewed. <Bhupendra Echeverria MD - Last Filed: 08/27/23 21:01> PMFSH Past Medical History Medical History: Medical History Urinary frequency <Lubna Zayas September, HOUSING [employer]ATION - Last Filed: 08/27/23 16:00> Family History Family History: Family History Mother Family history of elevated blood lipids, Onset Age: 46 Father Family history of diabetes mellitus in first degree relative, Onset Age: 48 <Lubna Rondon, HOUSING [employer]OCATION - Last Filed: 08/27/23 16:00> Social History Social History: Social History Social History: Single Smoking status: Former smoker Tobacco type: cigarettes Second hand tobacco smoke exposure: No Smoking end date: 05/07/13 Alcohol intake: never Substance use: never Substance use type: does not use Living arrangements: with family Occupation/Education: unemployed Additional occupation/education comments: Pt had to drop out of school due to health issues. Gender identity (if verbalized by the patient): Male Sexual Orientation (if Verbalized by the Patient): Straight or Heterosexual Spiritual care concerns: No <Lubna Rondon, HOUSING [employer]OCATION - Last Filed: 08/27/23 16:00> Exam Narrative: GENERAL: Well-appearing, well-nourished, and in no acute distress. HEAD: Normocephalic, atraumatic. EYES: PERRLA and EOMI. ENT: Nares clear, no rhinorrhea or epistaxis. Mucous membranes moist. NECK: Supple. CHEST
[2023-08-27 20:45] LABS: Troponin I < 0.012 ng/mL (0.000-0.034)
[2023-08-27 21:15] VITALS: BP 138/76; PULSE 74; RESP 15; O2SAT 100
== END 2023-08-27 21:16 | disposition home or self-care (01) ==
PROVIDERS: Emergency Medicine; Emergency Provider Emergency Medicine; PCP Emergency Medicine
DX: R07.89 Other chest pain (principal); R00.1 Bradycardia, unspecified
CPT/HCPCS: 36415; 71046; 80053; 83690; 84484; 85025; 85610; 85730; 93005; 99284

== ENCOUNTER 2023-09-04 19:45 | Emergency (ER) | payer OTHER, SELFPAY ==
--- NOTE | 2023-09-04 19:48 | ED.GENADULT ---
HPI - General Adult General Chief complaint: Urogenital-Male Stated complaint: BURNING URINATION/FREQUENCY Source: patient, RN notes reviewed and old records reviewed Mode of arrival: ambulatory Limitations: no limitations History of Present Illness HPI narrative: 28-year-old male patient presents to [facility] with complaint of burning with urination and urinary frequency that started days ago. Patient denies concerns for STDs. Pt states he is not currently sexually active. Related Data Allergies Allergy/AdvReac Type Severity Reaction Status Date / Time No Known Allergies Allergy Verified 09/04/23 19:47 Review of Systems Constitutional: Constitutional: Reports no additional constitutional complaints, Denies body ache(s), Denies chills, Denies fatigue, Denies fever(s) and Denies headache(s) Eyes: Eyes: Reports no additional eye complaints and Denies blurry vision ENT: Reports system reviewed and no additional complaints, except as documented, Denies vertigo, Denies dizziness, Denies ear discharge, Denies otalgia, Denies facial pain, Denies headache(s), Denies nasal congestion, Denies nasal discharge, Denies sinus pain, Denies sinus pressure and Denies sore throat Cardiovascular: Cardiovascular: Reports no additional cardiovascular complaints, Denies chest pain, Denies chest pain at rest, Denies rapid heart rate and Denies dyspnea Respiratory: Respiratory: Reports no additional respiratory complaints, Denies chest congestion, Denies cough, Denies pain on inspiration, Denies pain with cough and Denies dyspnea Gastrointestinal: Gastrointestinal: Denies abdominal pain, Denies diarrhea, Denies nausea and Denies vomiting Genitourinary: Genitourinary: Reports as per HPI, Reports dysuria and Reports urinary frequency Integumentary/Breasts: Skin/Breast: Denies rash Neurologic: Reports system reviewed and no additional complaints, except as documented, Denies vertigo, Denies dizziness and Denies headache(s) Endocrine: Endocrine: Denies fatigue PMFSH Past Medical History Medical History Urinary frequency Family History Family History Mother Family history of elevated blood lipids, Onset Age: 46 Father Family history of diabetes mellitus in first degree relative, Onset Age: 48 Social History Social History Social History: Single Smoking status: Former smoker Tobacco type: cigarettes Second hand tobacco smoke exposure: No Smoking end date: 05/07/13 Alcohol intake: never Substance use: never Substance use type: does not use Living arrangements: with family Occupation/Education: unemployed Additional occupation/education comments: Pt had to drop out of school due to health issues. Gender identity (if verbalized by the patient): Male Sexual Orientation (if Verbalized by the Patient): Straight or Heterosexual Spiritual care concerns: No Comments At the time of my signature, I reviewed and agree with the nursing past medical, surgical, social, and family history. There is no relevant family history pertinent to the patient complaint. Exam Const: General: cooperative, healthy appearing, no acute distress and well nourished Nutritional Appearance: well nourished Orientation/consciousness: patient oriented x3 Limitations: no limitations HENMT: Head: normal to inspection and normocephalic Ears: external ears normal Face/Nose/Sinus: normal facial exam Face and sinus: normal facial exam Mouth: Yes Normal oral and palatal mucosa present, Yes oropharynx normal and Yes moist mucous membranes Eyes: General: appearance normal, both eyes and all related structures Sclera: sclerae normal Pupils: Equal, round and reactive pupils present Resp: Effort & Inspection: normal respiratory effort, able to speak in complete sentences, no audible
[2023-09-04 19:53] VITALS: BP 122/84; PULSE 78; RESP 16; TEMP 36.9; O2SAT 100
== END 2023-09-04 20:05 | disposition home or self-care (01) ==
PROVIDERS: Emergency Provider Registered Nurse; PCP Emergency Medicine
DX: R30.0 Dysuria (principal); R31.9 Hematuria, unspecified; Z87.891 Personal history of nicotine dependence
CPT/HCPCS: 81003; 87086; 99213; G0463

== ENCOUNTER 2024-02-16 17:51 | Emergency (ER) | payer OTHER, SELFPAY ==
--- NOTE | 2024-02-16 18:01 | ED.URI ---
HPI - URI/Sore Throat General Chief Complaint: Upper Respiratory Infection Stated Complaint: sore throat Time Seen by Provider: 02/16/24 18:03 Source: patient Mode of arrival: ambulatory Limitations: no limitations History of Present Illness HPI Narrative: Neeraj is a 28-year-old male patient presenting to the clinic today with complaints of a sore throat, cough, nasal congestion, and feeling feverish x1 week. He reports no chest pain, shortness of breath, nausea, vomiting, or diarrhea. Cough is nonproductive. MD elicited complaint: sore throat and nasal congestion Related Data Home Medications Medication Instructions Recorded Confirmed esomeprazole magnesium 40 mg 40 mg PO DAILY 02/16/24 02/16/24 capsule,delayed release (Nexium) Allergies Allergy/AdvReac Type Severity Reaction Status Date / Time No Known Allergies Allergy Verified 02/16/24 18:06 Review of Systems Review of Systems: Pertinent positives per HPI. Patient denies any fever, chills, rash, headache, visual changes, dizziness, shortness of breath, chest pain, palpitations, nausea, vomiting, diarrhea, constipation, abdominal pain, or any urinary issues. PMFSH Past Medical History Medical History Urinary frequency Family History Family History Mother Family history of elevated blood lipids, Onset Age: 46 Father Family history of diabetes mellitus in first degree relative, Onset Age: 48 Social History Social History Social History: Single Smoking status: Former smoker Tobacco type: cigarettes Second hand tobacco smoke exposure: No Smoking end date: 05/07/13 Alcohol intake: never Substance use: never Substance use type: does not use Living arrangements: with family Occupation/Education: unemployed Additional occupation/education comments: Pt had to drop out of school due to health issues. Gender identity (if verbalized by the patient): Male Sexual Orientation (if Verbalized by the Patient): Straight or Heterosexual Spiritual care concerns: No Comments At the time of my signature, I reviewed and agree with the nursing past medical, surgical, social, and family history. There is no relevant family history pertinent to the patient complaint. Exam Narrative: General: Well-developed, well nourished, in no apparent distress Head: Normocephalic, atraumatic Eyes: Pupils equally round and reactive to light bilaterally, EOM intact, sclera and conjunctive clear, no discharge, lids normal Ears: TMs intact and clear, ear canals clear, no drainage, grossly hearing normal. Nose: Nares patent, clear nasal discharge, monitor inflammation, no sinus tenderness. Mouth: Oral pharynx red without lesions or masses, good dentition, MMM. Postnasal drip Neck: Supple, trachea midline, no enlargement of anterior or posterior cervical nodes, no thyroid masses or goiter palpable. Cardio: Regular rate and rhythm, s1 and s2 normal, no murmur appreciated. Resp: Clear to auscultation bilaterally, no rhonchi, rales, wheezing or rubs Course Course Emergency Course: Portions of this record may have been created with voice recognition software. Level of Care: Express Care Visit Vital Signs Vital signs: Vital Signs Temperature 36.8 C 02/16/24 18:03 Pulse Rate 78 02/16/24 18:03 Respiratory Rate 16 02/16/24 18:03 Blood Pressure 132/84 02/16/24 18:03 Pulse Oximetry 98 02/16/24 18:03 Temperature 36.8 C 02/16/24 18:03 Pulse Rate 78 02/16/24 18:03 Respiratory Rate 16 02/16/24 18:03 Blood Pressure 132/84 02/16/24 18:03 Pulse Oximetry 98 02/16/24 18:03 Vital signs reviewed MDM - URI/Sore Throat MDM Narrative Medical decision making narrative: At the time of visit patient is resting comfortably on the exam table.
[2024-02-16 18:03] VITALS: BP 132/84; PULSE 78; RESP 16; TEMP 36.8; O2SAT 98
[2024-02-16 18:24] LABS: EDSTREPNEGPOS1 Negative (Negative)
== END 2024-02-16 18:20 | disposition home or self-care (01) ==
PROVIDERS: Emergency Provider Nurse Practitioner Family; PCP Emergency Medicine
DX: J06.9 Acute upper respiratory infection, unspecified (principal); Z87.891 Personal history of nicotine dependence
CPT/HCPCS: 87081; 87880; 99213; G0463

== ENCOUNTER 2024-04-24 14:00 | Outpatient (CLI) | payer OTHER, SELFPAY ==
--- NOTE | ~2024-04-24 | CT_ITS ---
EXAMINATION: CTA brain carotid DATE: 04/24/2024 14:24 INDICATION: Syncope and collapse. TECHNIQUE: Computed tomographic angiography (CTA) of the head was performed without and with 100 mL O mnipaque-350 intravenous contrast. CTA of the neck was performed with intravenous contrast. Automated exposure control and iterative reconstruction technique were employed. The dose-length product was 1 681.80 mGy-cm. Maximum intensity projection and volume rendered 3D-reconstructions were created by tanesha aguilar technologist on a separate workstation. COMPARISON: Head CT 05/01/2017 FINDINGS: HEAD CTA: There is no intracranial hemorrhage, acute infarction, or abnormal intracranial mass lesion . The ventricles are normal in size. There is mild mucosal thickening in the paranasal sinuses. The m astoid air cells are normal. There is cerumen in right external auditory canal. The orbits are normal . The vertebral arteries are codominant. There is no significant stenosis of basilar artery or the po sterior cerebral arteries. There is no significant stenosis of the intracranial internal carotid titus arvind or anterior or middle cerebral arteries. Anterior communicating artery is normal. The posterior communicating arteries are normal. There is no aneurysm. NECK CTA: There is mild scarring at the lung apices. There are no pathologically enlarged lymph nodes . There is no significant stenosis of the vertebral arteries. The cervical carotid arteries are shannon l. There is 0% stenosis of the proximal right internal carotid artery relative to normal distal arter y lumen diameter (NASCET criteria). There is 0% stenosis of the proximal left internal carotid artery relative to normal distal artery lumen diameter. There is kyphosis of cervical spine. IMPRESSION: 1. Normal brain. No aneurysm or significant intracranial arterial stenosis 2. Normal neck arteries. Reviewed, dictated and finalized at location A. AL CIRCUIT DESIGNER
== END 2024-04-24 14:01 | disposition home or self-care (01) ==
LOC: ANHIMG 14:03
PROVIDERS: PCP Emergency Medicine; Visit Provider Emergency Medicine
DX: R55 Syncope and collapse (principal)
CPT/HCPCS: 70496; 70498; Q9967

== ENCOUNTER 2024-06-12 13:40 | Outpatient (CLI) | payer OTHER, SELFPAY ==
--- OUTSIDE RECORDS SUMMARY | 2024-06-12 13:47 | XMS_ITS | Encounter Summary ---
Author Organization [facility] Address 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
--- OUTSIDE RECORDS SUMMARY | 2024-06-12 13:47 | XMS_ITS | Referral Summary ---
Author Organization [facility] Address [address] [place] [address] Care Team Providers Care Mammal Keeper Name Role Phone Armando Gaspar MD Primary Care Provider Allergies No known active allergies Medications citalopram (CeleXA) 20 mg tablet Take 20 mg by mouth daily 02/17/2021 Active risperiDONE (RisperDAL) 0.5 mg tablet Take 0.5 mg by mouth nightly 02/25/2021 Active nortriptyline (PAMELOR) 25 mg capsule Take 2 capsules (50 mg total) by mouth nightly 60 capsule 5 03/15/2021 Active Active Problems Problem Noted Date Diagnosed Date Left wrist pain 12/24/2017 Knee pain 11/29/2015 Chest pain 07/13/2014 Social History Tobacco Use Types Packs/Day Years Used Date Smoking Tobacco: Former Smokeless Tobacco: Former Alcohol Use Standard Drinks/Week Comments Yes 0 (1 standard drink = 0.6 oz pur e alcohol) Personal Safety Answer Date Recorded Getting School Help Needed Not on file 07/06 Sex and Gender Information Value Date Recorded Sex Assigned at Not on file Legal Sex Male 3:32 AM MEN'S GARMENT FITTER Gender Identity Not on file Sexual Orientation Not on file Last Filed Vital Signs Vital Sign Reading Time Taken Comments Blood Pressure 110/80 03/15/2021 1:01 PM MEN'S GARMENT FITTER Pulse 77 03/15/2021 1:01 PM MEN'S GARMENT FITTER Temperature - - Respiratory Rate 12 03/15/2021 1:01 PM MEN'S GARMENT FITTER Oxygen Saturation 100% 08/18/2014 11: 30 AM CDT Inhaled Oxygen Concentration - - Weight 63.5 kg (139 lb 15.9 oz) 03/15/2021 1:01 PM MEN'S GARMENT FITTER Height 185.4 cm (6' 1 ) 10/04/2017 2:04 PM CDT Body Mass Index 18.47 10/04/2017 2:04 PM CDT Plan of Treatment Not on file Insurance ANTHEM ACCESS CHOICE BL CHOICE [facility] [place] CHO[place] PRF P[place] [employer]URE[place] OF DIS[place] Care Teams Mammal Keeper Relationship Specialty Start Date End Date Armando Gaspar MD [address] [address] PCP - General 08/09/17
--- OUTSIDE RECORDS SUMMARY | 2024-06-12 13:47 | XMS_ITS | Encounter Summary ---
Author Organization [facility] Address [address] [place] [address] Care Team Providers Care Toppiece Cutter Name Role Phone Unavailable Primary Care Provider Unavailabl e Encounter Details Date Type Department Care Team (Late st Contact Info) Description 05/23/1999 Outpatient Historical [facility] Mat Feliciano MD NO ADDRESS ON FILE Social History Tobacco Use Types Packs/Day Years Used Date Smoking Tobacco: Never Assessed Sex and Gender Information Value Date Recorded Sex Assigned at Not on file Legal Sex Male 3:58 AM MILITARY PILOT Gender Identity Not on file Sexual Orientation Not on file documented as of this encounter Plan of Treatment Not on file documented as of this encounter Visit Diagnoses Not on filedocumented in this encounter
--- OUTSIDE RECORDS SUMMARY | 2024-06-12 13:47 | XMS_ITS | Encounter Summary ---
Author Organization [facility] Address [address] [place] [address] Care Team Providers Care Slab Grinder Name Role Phone Unavailable Primary Care Provider Unavailabl e Encounter Details Date Type Department Care Team (Late st Contact Info) Description 05/02/1999 Outpatient Historical [facility] Mat Feliciano MD NO ADDRESS ON FILE Social History Tobacco Use Types Packs/Day Years Used Date Smoking Tobacco: Never Assessed Sex and Gender Information Value Date Recorded Sex Assigned at Not on file Legal Sex Male 3:58 AM SEM MANAGER Gender Identity Not on file Sexual Orientation Not on file documented as of this encounter Plan of Treatment Not on file documented as of this encounter Visit Diagnoses Not on filedocumented in this encounter
--- OUTSIDE RECORDS SUMMARY | 2024-06-12 13:47 | XMS_ITS | Clinical Summary ---
Author Organization [facility] Address [address] 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
--- OUTSIDE RECORDS SUMMARY | 2024-06-12 13:47 | XMS_ITS | Clinical Summary ---
Author Organization [facility] Address [address] [place] [address] Care Team Providers Care Nailhead Puncher Name Role Phone Armando Gaspar MD Primary [...] 12/24/2017 Knee pain 11/29/2015 Chest pain 07/13/2014 Medical History Medical History Date Comments Hx Other Medical pericarditis; C omments: ANU 05/26/2014 - Anxiety Family History Medical History Relation Name Comments Arthritis Father Family history of arthritis - (Added by TW Conv) Diabetes Father Family history of diabetes mellitus - (Added by TW Conv) Bipolar disorder Mother Bipolar dis order - (Added by TW Conv) Hypertension Mother Family history of hypertension - (Added by TW Conv) Relation Name Status Comments Father Mother Social History Tobacco Use Types Packs/Day Years Used Date Smoking Tobacco: Former Smokeless Tobacco: Former Alcohol Use Standard Drinks/Week Comments Yes 0 (1 standard drink = 0.6 oz pur e alcohol) Personal Safety Answer Date Recorded Getting School Help Needed Not on file 07/06 Sex and Gender Information Value Date Recorded Sex Assigned at Not on file Legal Sex Male 3:32 AM 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 Gender Identity Not on file Sexual Orientation Not on file Obstetrics History Last Filed Vital Signs Vital Sign Reading Time Taken Comments Blood Pressure 110/80 03/15/2021 1:01 PM 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 Pulse 77 03/15/2021 1:01 PM 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 Temperature - - Respiratory Rate 12 03/15/2021 1:01 PM 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 Oxygen Saturation 100% 08/18/2014 11: 30 AM CDT Inhaled Oxygen Concentration - - Weight 63.5 kg (139 lb 15.9 oz) 03/15/2021 1:01 PM 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 Height 185.4 cm (6' 1 ) 10/04/2017 2:04 PM CDT Body Mass Index 18.47 10/04/2017 2:04 PM CDT Plan of Treatment Health Maintenance Due Date Last Done Comments Depression Screening 1995 Hepatitis C Screening 1995 DTaP/Tdap/Td Vaccine (1 - Tdap) 2005 Varicella Vaccines (1 of 2 - 13+ 2-dose series) 2007 Hepatitis B Screening 2012 Regular Well Visit/Exam 18-64 2012 Influenza Vaccine (#1) 2024 HPV Vaccines Aged Out No longer eligi ble based on patient's age to complete this topic Pneumococcal vaccine <65 Aged Out No longer eligible based on patient's age to complete this topic Insurance [facility] CHOICE [place] CHOICE [place]PO [place] [facility] OPEN ACCESS [facility] PPO [place] Care Teams Nailhead Puncher Relationship Specialty Start Date End Date Armando Gaspar MD [address] [facility] [address] [place] [address] PCP - General 08/09/17
--- OUTSIDE RECORDS SUMMARY | 2024-06-12 13:47 | XMS_ITS | Encounter Summary ---
Author Organization [facility] Address [address] [place] [address] Care Team Providers Care Fiber Glass Worker Name Role Phone Unavailable Primary Care Provider Unavailabl e Encounter Details Date Type Department Care Team (Late st Contact Info) Description 03/04/1999 Outpatient Historical [facility] Mat Feliciano MD NO ADDRESS ON FILE Social History Tobacco Use Types Packs/Day Years Used Date Smoking Tobacco: Never Assessed Sex and Gender Information Value Date Recorded Sex Assigned at Not on file Legal Sex Male 3:58 AM AIR BOATSWAIN Gender Identity Not on file Sexual Orientation Not on file documented as of this encounter Plan of Treatment Not on file documented as of this encounter Visit Diagnoses Not on filedocumented in this encounter
--- OUTSIDE RECORDS SUMMARY | 2024-06-12 13:47 | XMS_ITS | Encounter Summary ---
Author Organization [employer] Address [address] [place] [address] Care Team Providers Care Analog Design Engineer Name Role Phone Unavailable Primary Care Provider Unavailabl e Encounter Details Date Type Department Care Team (Late st Contact Info) Description 01/19/2006 Outpatient Historical HIS MRI DEPT Nicolás Tavares MD [address] [place] [address] Pain in Joint, Lower Leg (Primary Dx) Social History Tobacco Use Types Packs/Day Years Used Date Smoking Tobacco: Never Assessed Sex and Gender Information Value Date Recorded Sex Assigned at Not on file Legal Sex Male 3:58 AM DROP PRESS HAND Gender Identity Not on file Sexual Orientation Not on file documented as of this encounter Plan of Treatment Not on file documented as of this encounter Visit Diagnoses Diagnosis Pain in joint, lower leg- Primary documented in this encounter
--- NOTE | 2024-06-12 13:58 | ECHO_ITS ---
Patient Info Name: Neeraj Calix Age: 29 years : 1995 Gender: Male Ht: 71 in Wt: 147 lbs BSA: 1.82 m2 HR: 86 bpm BP: 126 / 84 mmHg Heart Rhythm: Sinus Rhythm Technical Quality: Excellent Exam Date: 06/12/2024 2:10 PM Exam Location: Echo Lab Patient Status: Outpatient Admit Date: 06/12/2024 Staff Ordering Physician: Mesfin Lares DO Marketing Database Analyst: Kianna Luciano RDCS Attending Provider: Mesfin Lares DO Referring Physician: Arnaud SINGH; Exam Type: CA echo doppler color flow Study Info Indications - Dyspnea Complete two-dimensional, color flow and Doppler transthoracic echocardiogram is performed. Summary 1. Complete two-dimensional, color flow and Doppler transthoracic echocardiogram is performed. 2. Left ventricular chamber dimension is mildly enlarged. 3. Left ventricular systolic function is mildly globally reduced, estimated at 45-50%. 4. The left ventricular diastolic function is normal. 5. E/e' 6 is not elevated. 6. Left atrial chamber dimension is mildly enlarged. 7. There is mild mitral valve regurgitation. 8. There is trace tricuspid valve regurgitation. 9. There is trace pulmonic regurgitation. Left Ventricle E/e' 6 is not elevated. Left ventricular systolic function is mildly globally reduced, estimated at 45-50%. Left ventricular chamber dimension is mildly enlarged. The left ventricular diastolic function is normal. Right Ventricle Right ventricular systolic function is normal and with normal TAPSE 2.5 cm. Right ventricular chamber dimension is normal. Left Atria Left atrial chamber dimension is mildly enlarged. Right Atria Right atrial chamber dimension is normal. Aortic Valve The aortic valve is trileaflet. There is no aortic valve stenosis. There is no aortic valve regurgitation. Pulmonic Valve There is trace pulmonic regurgitation. Mitral Valve There is no mitral valve stenosis. There is mild mitral valve regurgitation. Tricuspid Valve RVSP is not measured due to inadequate TR jet. There is trace tricuspid valve regurgitation. Pericardium/Pleural There is no pericardial effusion. Inferior Vena Cava Normal inferior vena cava with >50% collapse upon inspiration consistent with normal right atrial pressure, 5 mmHg. Aorta The aortic root size at the sinus of Valsalva is normal. Left Ventricular Outflow Tract Name Value Normal LVOT 2D LVOT Diameter 2.2 cm LVOT Doppler LVOT Peak Gradient 4 mmHg LVOT Mean Gradient 2 mmHg LVOT VTI 19 cm LVOT VTI/AV VTI Ratio 0.8 LVOT Stroke Volume 69 ml LVOT CO 5.5 l/min LVOT CI 3.0 l/min/m2 Pulmonic Valve Name Value Normal PV Doppler PV Peak Gradient 2 mmHg PV Regurgitation Doppler OR Peak End Diastolic Velocity 105 cm/s Mitral Valve Name Value Normal MV Doppler MV Peak Gradient 2 mmHg MV Mean Gradient 1 mmHg MV Decel Rosebud 446 cm/s2 MV PHT 44 ms MV Area (PHT) 5.0 cm2 4.0-5.0 MV Area (Cont Eq VTI) 3.9 cm2 MV Diastolic Function MV E Peak Velocity 68 cm/s MV A Peak Velocity 66 cm/s MV E/A 1.0 MV Decel Time 152 ms MV Annular TDI MV E/e' (Septal) 9.1 <=8.0 MV E/e' (Lateral) 5.4 <=8.0 MV E/e' (Average) 7.3 Tricuspid Valve Name Value Normal Estimated PAP/RSVP RA Pressure 5 mmHg <=5 Aortic Valve Name Value Normal AV Doppler AV Peak Velocity 122 cm/s AV Peak Gradient 6 mmHg AV Mean Gradient 3 mmHg AV VTI 22 cm AV Area (Cont Eq VTI) 3.1 cm2 >=3.0 AV Area (Cont Eq Alfonzo) 3.0 cm2 AV Regurgitation 2D LVOT Area 3.7 cm2 Ventricles Name Value Normal LV Dimensions 2D/MM IVS Diastolic Thickness (2D) 0.6 cm 0.6-1.0 LVID Diastole (2D) 5.1 cm 4.2-5.8 LVID Diastole (MM) 5.2 cm 4.2-5.8 LVIW Diastolic Thickness (2D) 0.6 cm 0.6-1.0 LVID Systole (2D) 4.1 cm 2.5-4.0 LVID Systole (MM) 3.7 cm 2.5-4.0 LVOT Diameter 2.2 cm LV Mass (2D Cubed) 99.70 g 88.00-224.00 LV Mass Index (2D Cubed) 55 g/m2 49-115 Relative Wall Thickness (2D) 0.23 LV Fractional Shortening/Ejection Fraction 2D/MM LV Fractional Shortening (2D) 21 % 25-43 LV Fractional Shortening (MM) 28 % 25-43 LV EF (MM Teicholz) 54 % 52-72 LV EF (2D Teicholz) 42 % 52-72 LV Diastolic Volume (4C MOD) 132 ml LV EF (4C MOD) 53 % LV Diastolic Volume (2C MOD) 146 ml LV EF (2C MOD) 50 % LV Diastolic Volume (BP MOD) 144 ml 62-150 LV Diastolic Volume Index (BP MOD) 79 ml/m2 34-74 LV Systolic Volume (BP MOD) 74 ml 21-61 LV Systolic Volume Index (BP MOD) 41 ml/m2 11-31 LV EF (BP MOD) 49 % 52-72 LV Diastolic Length (4C) 8.6 cm LV Systolic Length (4C) 6.8 cm LV Stroke Volume (4C MOD) 69 ml LV CO (BP MOD) 5.9 l/min LV CI (BP MOD) 3.2 l/min/m2 Atria Name Value Normal LA Dimensions LA Volume (4C A-L) 42 ml LA Volume (BP A-L) 51 ml RA Dimensions RA Area (4C) 12.7 cm2 <=18.0 Report Signatures
== END 2024-06-12 13:41 | disposition home or self-care (01) ==
PROVIDERS: PCP Emergency Medicine; Visit Provider Internal Medicine Cardiovascular Disease
DX: R06.09 Other forms of dyspnea (principal); I34.0 Nonrheumatic mitral (valve) insufficiency
CPT/HCPCS: 93306

== ENCOUNTER 2024-07-29 12:45 | Emergency (ER) | payer OTHER, SELFPAY ==
--- NOTE | ~2024-07-29 | XR_ITS ---
XR chest 2V Ordering provider: Edmundo Hernandez MD History: 29 years Male with . sob, chest pain on left side . Comparison: None. FINDINGS: MEDIASTINUM: The cardiac silhouette is not enlarged. LUNGS: No infiltrates, effusions or pneumothorax. OTHER: No free air under the diaphragm. IMPRESSION: No acute cardiopulmonary pathology. Reviewed, dictated and finalized at location A.
[2024-07-29 12:48] VITALS: BP 142/84; PULSE 87; RESP 16; TEMP 36.4; O2SAT 100
--- NOTE | 2024-07-29 12:52 | ECG_ITS ---
Test Date: 2024-07-29 12:57:25 Measurements Intervals [place] Rate: 84 P: 58 NV: 145 QRS: 56 QRSD: 93 T: 41 QT: 342 QTc: 407 Interpretive Statements SINUS RHYTHM EARLY REPOLARIZATION [ST ELEVATION WITH NORMALLY INFLECTED T WAVE] No previous ECG available for comparison Electronically Signed On 07-29-2024 16:45:57 CDT by Rosalio Portillo M.D.
[2024-07-29 14:31] VITALS: BP 121/81; RESP 18; O2SAT 100
--- OUTSIDE RECORDS SUMMARY | 2024-07-29 14:39 | XMS_ITS | Clinical Summary ---
Author Organization [facility] Address [address] [place]: Epic Prelude ADT [place] [address] Care Team Providers Care Truck Driver Name Role Phone Unavailable Primary Care Provider Unavailabl e Social History Tobacco Use Types Packs/Day Years Used Date Smoking Tobacco: Never Assessed Sex and Gender Information Value Date Recorded Sex Assigned at Not on file Legal Sex Male 3:58 AM POCKET STITCHER Gender Identity Not on file Sexual Orientation Not on file Plan of Treatment Health Maintenance Due Date Last Done Comments DTAP/TDAP/TD VACCINES (1 - Tdap) 2013 HEPATITIS B VACCINES (1 of 3 - 19+ 3-dose series) 2013 INFLUENZA VACCINE (#1) 2023 HPV VACCINES Aged Out No longer eligi ble based on patient's age to complete this topic PNEUMOCOCCAL VACCINE 0-49 YEARS Aged Out No longer eligible based on patient's age to complete this topic
--- OUTSIDE RECORDS SUMMARY | 2024-07-29 14:39 | XMS_ITS | Clinical Summary ---
Author Organization [facility] Address [facility]ly [facility] [place] [address] Care Team Providers Care Supervisor Cooler Service Name Role Phone Armando Gaspar MD Primary [...] on file Legal Sex Male 3:32 AM CLUBHOUSE MANAGER Gender Identity Not on file Sexual Orientation Not on file Obstetrics History Last Filed Vital Signs Vital Sign Reading Time Taken Comments Blood Pressure 110/80 03/15/2021 1:01 PM CLUBHOUSE MANAGER Pulse 77 03/15/2021 1:01 PM CLUBHOUSE MANAGER Temperature - - Respiratory Rate 12 03/15/2021 1:01 PM CLUBHOUSE MANAGER Oxygen Saturation 100% 08/18/2014 11: 30 AM CDT Inhaled Oxygen Concentration - - Weight 63.5 kg (139 lb 15.9 oz) 03/15/2021 1:01 PM CLUBHOUSE MANAGER Height 185.4 cm (6' 1 ) 10/04/2017 [...] patient's age to complete this topic Insurance [facility] CHOICE [place] [facility] OPEN ACCESS BL CHOICE [facility] [place] CHO[place] BUREAU OF DISABILITY Care Teams Supervisor Cooler Service Relationship Specialty Start Date End Date Armando Gaspar MD [address] [facility] [address] [place] [address] PCP - General 08/09/17
--- OUTSIDE RECORDS SUMMARY | 2024-07-29 14:39 | XMS_ITS | Encounter Summary ---
Author Organization [facility] Address [address] [place] [address] Care Team Providers Care Broacher Name Role Phone Unavailable Primary Care Provider [...] on file Legal Sex Male 3:58 AM HEAD OF PARTNER DEVELOPMENT Gender Identity Not on file Sexual Orientation Not on file documented as of this encounter Plan of Treatment Not on file documented as of this encounter Visit Diagnoses Not on filedocumented in this encounter
--- OUTSIDE RECORDS SUMMARY | 2024-07-29 14:39 | XMS_ITS | Referral Summary ---
Author Organization [facility] Address [address] [place] [address] Care Team Providers Care Cso Name Role Phone Armando Gaspar MD Primary [...] on file Legal Sex Male 3:32 AM FLOOR STEWARD/STEWARDESS Gender Identity Not on file Sexual Orientation Not on file Last Filed Vital Signs Vital Sign Reading Time Taken Comments Blood Pressure 110/80 03/15/2021 1:01 PM FLOOR STEWARD/STEWARDESS Pulse 77 03/15/2021 1:01 PM FLOOR STEWARD/STEWARDESS Temperature - - Respiratory Rate 12 03/15/2021 1:01 PM FLOOR STEWARD/STEWARDESS Oxygen Saturation 100% 08/18/2014 11: 30 AM CDT Inhaled Oxygen Concentration - - Weight 63.5 kg (139 lb 15.9 oz) 03/15/2021 1:01 PM FLOOR STEWARD/STEWARDESS Height 185.4 cm (6' 1 ) 10/04/2017 2:04 PM CDT Body Mass Index 18.47 10/04/2017 2:04 PM CDT Plan of Treatment Not on file Insurance ANTHEM ACCESS CHOICE BL CHOICE [facility] [place] BL CHOICE PR[place] CHO[place] PRF [place] [employer] DIS[place] Care Teams Cso Relationship Specialty Start Date End Date Armando Gaspar MD [address] [address] PCP - General 08/09/17
--- OUTSIDE RECORDS SUMMARY | 2024-07-29 14:39 | XMS_ITS | Encounter Summary ---
Author Organization [facility] Address [address] [place] [address] Care Team Providers Care Petrophysical Engineer Name Role Phone Unavailable Primary Care Provider Unavailabl e Encounter Details Date Type Department Care Team (Late st Contact Info) Description 01/19/2006 Outpatient Historical HIS MRI DEPT Nicolás Tavares MD [address] [place] [address] Pain in Joint, Lower Leg (Primary Dx) Social History Tobacco Use Types Packs/Day Years Used Date Smoking Tobacco: Never Assessed Sex and Gender Information Value Date Recorded Sex Assigned at Not on file Legal Sex Male 3:58 AM GRINDER SET UP OPERATOR THREAD TOOL Gender Identity Not on file Sexual Orientation Not on file documented as of this encounter Plan of Treatment Not on file documented as of this encounter Visit Diagnoses Diagnosis Pain in joint, lower leg- Primary documented in this encounter
--- OUTSIDE RECORDS SUMMARY | 2024-07-29 14:40 | XMS_ITS | Encounter Summary ---
Author Organization [facility] Address [address] [place] [address] Care Team Providers Care Shape Carver Name Role Phone Unavailable Primary Care Provider [...] on file Legal Sex Male 3:58 AM ZIGZAG TUNNEL ELASTIC OPERATOR Gender Identity Not on file Sexual Orientation Not on file documented as of this encounter Plan of Treatment Not on file documented as of this encounter Visit Diagnoses Not on filedocumented in this encounter
--- OUTSIDE RECORDS SUMMARY | 2024-07-29 14:40 | XMS_ITS | Encounter Summary ---
Author Organization [facility] Address [address] [place] [address] Care Team Providers Care Studio Technician Video Operator Name Role Phone Unavailable Primary Care Provider [...] on file Legal Sex Male 3:58 AM GLASS BLOCK INSTALLER Gender Identity Not on file Sexual Orientation Not on file documented as of this encounter Plan of Treatment Not on file documented as of this encounter Visit Diagnoses Not on filedocumented in this encounter
--- OUTSIDE RECORDS SUMMARY | 2024-07-29 14:40 | XMS_ITS | Encounter Summary ---
Author Organization [facility] Address [address] [place] [address] Care Team Providers Care Elementary Supervisor Name Role Phone Unavailable Primary Care Provider [...] on file Legal Sex Male 3:58 AM ADDRESSING MACHINE OPERATOR Gender Identity Not on file Sexual Orientation Not on file documented as of this encounter Plan of Treatment Not on file documented as of this encounter Visit Diagnoses Not on filedocumented in this encounter
[2024-07-29 15:12] VITALS: BP 120/80; PULSE 80; RESP 16; TEMP 36.6; O2SAT 99
[2024-07-29 15:45] VITALS: RESP 13; O2SAT 100
[2024-07-29 15:46] VITALS: BP 115/75; PULSE 71; RESP 19; O2SAT 100
--- NOTE | 2024-07-29 15:51 | ED.SOB ---
HPI - SOB/Dyspnea General Chief Complaint: Shortness of Breath/Dyspnea Stated Complaint: Shortness of breath and pain in left lung Time Seen by Provider: 07/29/24 14:21 History of Present Illness HPI Narrative: 29-year-old male presenting to the emergency department for evaluation of left lateral rib cage pain. He thinks he has a collapsed lung and wants to be evaluated. Denies any trauma or injury. No history of pneumothorax. No pneumonia or upper respiratory infection symptoms. No chest pain. No nausea or vomiting. No abdominal pain or back pain. He was otherwise in his normal state of health. Related Data Home Medications ?Medication ?Instructions ?Recorded ?Confirmed ?Last Taken ?Type esomeprazole magnesium 40 mg 40 mg PO DAILY 02/16/24 05/23/24 Unknown History capsule,delayed release (Nexium) lurasidone 20 mg tablet 10 mg PO DAILY 05/23/24 05/23/24 Unknown History Allergies Allergy/AdvReac Type Severity Reaction Status Date / Time No Known Allergies Allergy Verified 07/29/24 12:46 Review of Systems Review of Systems: [facility] Past Medical History Medical History Urinary frequency Family History Family History Mother Family history of elevated blood lipids, Onset Age: 46 Father Family history of diabetes mellitus in first degree relative, Onset Age: 48 Social History Social History Social History: Single Smoking status: Former smoker Tobacco type: cigarettes Second hand tobacco smoke exposure: No Smoking end date: 05/07/13 Alcohol intake: never Substance use: never Substance use type: does not use Do You Feel Safe in your Home?: Yes Lack of Transportation: No Lack of Food: Never True Current Housing: I Have Housing Concerned About Future Housing: No Difficulty Paying Gas/Electric Bills: No Difficulty Paying for Meds: No Currently Unemployed: Decline to Answer Education: Associate Degree Difficulty w/ Childcare or Family Care: No Living arrangements: with family Occupation/Education: unemployed Additional occupation/education comments: Pt had to drop out of school due to health issues. Gender identity (if verbalized by the patient): Male Sexual Orientation (if Verbalized by the Patient): Straight or Heterosexual Spiritual care concerns: No Exam Narrative: GENERAL: [Well-appearing, well-nourished, and in no acute distress.] HEAD: [Normocephalic, atraumatic.] EYES: [PERRLA and EOMI.] ENT: Nares clear, no rhinorrhea or epistaxis. Mucous membranes moist. NECK: Supple. CHEST: [Clear to auscultation. No respiratory distress.] Reproducible tenderness to palpation over the left lateral ribcage around rib 4/5. No overlying skin changes or rashes. HEART: [Regular rate and rhythm]. No murmur heard. [Normal peripheral pulses.] ABDOMEN: [Soft, nondistended], [nontender], [No rigidity or guarding] EXTREMITIES: Normal range of motion. [No edema.] SKIN: Warm, dry, no rash. NEURO: [No focal deficits]. Alert and oriented [x3.] PSYCH: [Normal mood and affect.] Course Vital Signs Vital signs: Vital Signs Temperature 36.4 C L 07/29/24 12:48 Pulse Rate 87 07/29/24 12:48 Respiratory Rate 16 07/29/24 12:48 Blood Pressure 142/84 H 07/29/24 12:48 Pulse Oximetry 100 07/29/24 12:48 Oxygen Delivery Room Air 07/29/24 12:48 Temperature 36.6 C 07/29/24 15:12 Pulse Rate 80 07/29/24 15:12 Respiratory Rate 16 07/29/24 15:12 Blood Pressure 120/80 07/29/24 15:12 Pulse Oximetry 99 07/29/24 15:12 Oxygen Delivery Room Air 07/29/24 12:48 MDM - SOB/Dyspnea MDM Narrative Medical decision making narrative: 29-year-old male presenting with left lateral ribcage pain. He thinks he has a collapsed lung as he read this online. He has no signs of trauma. Denies any injury. Was otherwise in his normal state of health. Has clear breath sounds and symmetric. Normal vital signs. Normal blood pressure, strong symmetric pulses. Two-view chest x-ray was obtained to evaluate for any pneumothorax or osseous process, low suspicion pneumonia. EKG obtained. Chest x-ray shows no acute cardiopulmonary process. No infiltrates effusion or pneumothorax. EKG independently reviewed and shows benign early repolarization pattern. No signs of acute occlusive event. Patient is safe for discharge home at this time. Medical Records Attestation: I reviewed the patient's medical records. Lab Data Attestation: I reviewed the patient's lab results. Imaging Data Attestation: I personally reviewed and interpreted this imaging study as follows: My impression: Impressions Chest X-Ray 07/29/24 13:29 IMPRESSION: No acute cardiopulmonary pathology. ECG Data EKG #1: Attestation: I personally reviewed and interpreted this ECG as follows: ECG completion date: 07/29/24 ECG completion time: 12:57 Prior ECG tracings: not available for review Interpretation: J-point elevations with upper in flexion in all leads, consistent with benign early repolarization pattern. Normal sinus rhythm otherwise. Discharge Plan Discharge Clinical Impression: Rib pain on left side Patient Disposition: Home, Self-Care Condition: Stable Instructions: Antibiotic Form Additional Instructions: Your chest x-ray was reassuring, no pneumothorax or popped lung. EKG without any concerning findings. Follow-up with regular doctor. Tylenol, ibuprofen for any pain. Patient Language: Albanian Prescriptions: No Action esomeprazole magnesium [Nexium] 40 mg Capsule,Delayed Release(Dr/Ec) 40 mg PO DAILY lurasidone 20 mg tablet 10 mg PO DAILY Rx Instructions: must administer with food (at least 350 calories) Follow-up/Referrals: Urban Maza MD [Primary Care Provider] - Time of Disposition: 15:57
--- OUTSIDE RECORDS SUMMARY | 2024-07-29 16:53 | XMS_ITS | Encounter Summary ---
Author Organization [facility] Address 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
--- OUTSIDE RECORDS SUMMARY | 2024-07-29 16:53 | XMS_ITS | Referral Summary ---
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 Gender Identity Not on file Sexual Orientation Not on file Last Filed Vital Signs Vital Sign Reading Time Taken Comments Blood Pressure 110/80 03/15/2021 1:01 PM CIVIL RIGHTS INVESTIGATOR Pulse 77 03/15/2021 1:01 PM CIVIL RIGHTS INVESTIGATOR Temperature - - Respiratory Rate 12 03/15/2021 1:01 PM CIVIL RIGHTS INVESTIGATOR Oxygen Saturation 100% 08/18/2014 11: 30 AM CDT Inhaled Oxygen Concentration - - Weight 63.5 kg (139 lb 15.9 oz) 03/15/2021 1:01 PM CIVIL RIGHTS INVESTIGATOR Height 185.4 cm (6' 1 ) 10/04/2017 2:04 PM CDT Body Mass Index 18.47 10/04/2017 2:04 PM CDT Plan of Treatment Not on file Insurance ANTHEM ACCESS CHOICE BL CHOICE [facility] [place] ACC[place] CHOICE [place] CHO[place] PRF [place] [employer] Care Teams Surety Bond Agent Relationship Specialty Start Date End Date Armando Gaspar MD [address] [address] PCP - General 08/09/17
--- OUTSIDE RECORDS SUMMARY | 2024-07-29 16:53 | XMS_ITS | Encounter Summary ---
Author Organization [facility] Address 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
--- OUTSIDE RECORDS SUMMARY | 2024-07-29 16:53 | XMS_ITS | Encounter Summary ---
Author Organization [facility] Address 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
--- OUTSIDE RECORDS SUMMARY | 2024-07-29 16:53 | XMS_ITS | Clinical Summary ---
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 Gender Identity Not on file Sexual Orientation Not on file Obstetrics History Last Filed Vital Signs Vital Sign Reading Time Taken Comments Blood Pressure 110/80 03/15/2021 1:01 PM ALUMINUM BOAT ASSEMBLY SUPERVISOR Pulse 77 03/15/2021 1:01 PM ALUMINUM BOAT ASSEMBLY SUPERVISOR Temperature - - Respiratory Rate 12 03/15/2021 1:01 PM ALUMINUM BOAT ASSEMBLY SUPERVISOR Oxygen Saturation 100% 08/18/2014 11: 30 AM CDT Inhaled Oxygen Concentration - - Weight 63.5 kg (139 lb 15.9 oz) 03/15/2021 1:01 PM ALUMINUM BOAT ASSEMBLY SUPERVISOR Height 185.4 cm (6' 1 ) 10/04/2017 [...] patient's age to complete this topic Insurance [facility] CHOICE [place] CHO[place] [facility] OPEN ACCESS [facility] [place] BL [facility] PPO [place] B[employer] Care Teams Hydraulic Riveter Relationship Specialty Start Date End Date Armando Gaspar MD [address] [facility] [address] [place] [address] PCP - General 08/09/17
--- OUTSIDE RECORDS SUMMARY | 2024-07-29 16:53 | XMS_ITS | Clinical Summary ---
Author Organization [facility] Address [address] 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
--- OUTSIDE RECORDS SUMMARY | 2024-07-29 16:53 | XMS_ITS | Encounter Summary ---
Author Organization [facility] Address 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
--- OUTSIDE RECORDS SUMMARY | 2024-07-29 16:53 | XMS_ITS | Encounter Summary ---
Author Organization [facility] Address 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
== END 2024-07-29 16:12 | disposition home or self-care (01) ==
PROVIDERS: Emergency Provider Student in an Organized Health Care Education/Training Program; PCP Emergency Medicine
DX: R07.89 Other chest pain (principal)
CPT/HCPCS: 71046; 93005; 99283

== ENCOUNTER 2024-08-19 05:13 | Emergency (ER) | payer OTHER, SELFPAY ==
--- NOTE | ~2024-08-19 | CT_ITS ---
Noncontrast CT scan of the thoracolumbar spine CLINICAL HISTORY: Pain TECHNIQUE: Axial noncontrast imaging of the thoracolumbar spine was performed. Sagittal and coronal r eformatted images were constructed. Dose reduction technique was used on this scan by utilizing autom ated exposure control and iterative reconstruction technique. The dose-length product (DLP) was 573.5 3 mGy-cm. FINDINGS: There is no fracture or subluxation of the thoracic spine. There are mild degenerative disc changes in the upper to mid thoracic spine. No significant disc bulge or herniation identified at an y thoracic level. No spinal canal stenosis or cord compression identified. No neural foraminal narrow ing evident. There is no fracture or subluxation of the lumbar spine. Vertebral bodies maintain normal height and alignment. Intervertebral disc spaces are well preserved. No significant disc bulge or herniation seen at any lumbar level. No spinal canal stenosis or neural foraminal narrowing identified. Paravertebral soft tissues are unremarkable. Small nonobstructing right renal stone noted. Impression: Minimal degenerative change of the thoracic spine. Small nonobstructing right renal stone. Reviewed, dictated and finalized at location . Impression: Minimal degenerative change of the thoracic spine. Small nonobstructing right renal stone.
[2024-08-19 05:14] VITALS: BP 135/85; PULSE 106; RESP 14; TEMP 36.4; O2SAT 100
--- OUTSIDE RECORDS SUMMARY | 2024-08-19 05:14 | XMS_ITS | Encounter Summary ---
Author Organization [facility] Address 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
--- OUTSIDE RECORDS SUMMARY | 2024-08-19 05:14 | XMS_ITS | Clinical Summary ---
Author Organization [facility] Address [address] [place] [address] Care Team Providers Care Catch Basin Cleaner Name Role Phone Armando Gaspar MD Primary [...] on file Legal Sex Male 3:32 AM SKID ADZER Gender Identity Not on file Sexual Orientation Not on file Obstetrics History Last Filed Vital Signs Vital Sign Reading Time Taken Comments Blood Pressure 110/80 03/15/2021 1:01 PM SKID ADZER Pulse 77 03/15/2021 1:01 PM SKID ADZER Temperature - - Respiratory Rate 12 03/15/2021 1:01 PM SKID ADZER Oxygen Saturation 100% 08/18/2014 11: 30 AM CDT Inhaled Oxygen Concentration - - Weight 63.5 kg (139 lb 15.9 oz) 03/15/2021 1:01 PM SKID ADZER Height 185.4 cm (6' 1 ) 10/04/2017 [...] patient's age to complete this topic Insurance [facility] Address: [facility] [id number] [place] [address] BL CHO[place]F [place] [facility] OPEN ACCESS BL CHOICE [facility] CHOICE [facility] PPO [place] [employer] Care Teams Catch Basin Cleaner Relationship Specialty Start Date End Date Armando Gaspar MD [address] [facility] [address] [place] [address] PCP - General 08/09/17
--- OUTSIDE RECORDS SUMMARY | 2024-08-19 05:14 | XMS_ITS | Clinical Summary ---
Author Organization [facility] Address [address] Thomasn: Epic Prelude ADT [place] [address] Care Team Providers Care Electrician Radio Name Role Phone Unavailable Primary Care Provider Unavailabl e Social History Tobacco Use Types Packs/Day Years Used Date Smoking Tobacco: Never Assessed Sex and Gender Information Value Date Recorded Sex Assigned at Not on file Legal Sex Male 3:58 AM VASCULAR NEUROLOGIST Gender Identity Not on file Sexual Orientation [...]
--- OUTSIDE RECORDS SUMMARY | 2024-08-19 05:14 | XMS_ITS | Encounter Summary ---
Author Organization [facility] Address 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
--- OUTSIDE RECORDS SUMMARY | 2024-08-19 05:14 | XMS_ITS | Encounter Summary ---
Author Organization [facility] Address [address] [place] [address] Care Team Providers Care Soda Fountain Clerk Name Role Phone Unavailable Primary Care Provider [...] on file Legal Sex Male 3:58 AM INVENTORY TRANSCRIBER Gender Identity Not on file Sexual Orientation Not on file documented as of this encounter Plan of Treatment Not on file documented as of this encounter Visit Diagnoses Not on filedocumented in this encounter
--- OUTSIDE RECORDS SUMMARY | 2024-08-19 05:14 | XMS_ITS | Encounter Summary ---
Author Organization [facility] Address 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
--- OUTSIDE RECORDS SUMMARY | 2024-08-19 05:14 | XMS_ITS | Encounter Summary ---
Author Organization [facility] Address 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
--- OUTSIDE RECORDS SUMMARY | 2024-08-19 05:14 | XMS_ITS | Referral Summary ---
Author Organization [facility] Address [address] [place] [address] Care Team Providers Care Coke Oven Patcher Name Role Phone Armando Gaspar MD Primary [...] on file Legal Sex Male 3:32 AM LIFE ADVISOR Gender Identity Not on file Sexual Orientation Not on file Last Filed Vital Signs Vital Sign Reading Time Taken Comments Blood Pressure 110/80 03/15/2021 1:01 PM LIFE ADVISOR Pulse 77 03/15/2021 1:01 PM LIFE ADVISOR Temperature - - Respiratory Rate 12 03/15/2021 1:01 PM LIFE ADVISOR Oxygen Saturation 100% 08/18/2014 11: 30 AM CDT Inhaled Oxygen Concentration - - Weight 63.5 kg (139 lb 15.9 oz) 03/15/2021 1:01 PM LIFE ADVISOR Height 185.4 cm (6' 1 ) 10/04/2017 2:04 PM CDT Body Mass Index 18.47 10/04/2017 2:04 PM CDT Plan of Treatment Not on file Insurance ANTHEM ACCESS [facility] Address: [address] [place] [address] BL CHOICE [facility] [place]PO [place] OPEN ACCESS BL CHOICE PRF PPO [place] CHOICE PRF [place] Care Teams Coke Oven Patcher Relationship Specialty Start Date End Date Armando Gaspar MD [address] [address] PCP - General 08/09/17
--- NOTE | 2024-08-19 05:43 | ED_ITS ---
HPI - General Adult General Chief complaint: Unspecified Stated complaint: spinal shifting since sunday Time Seen by Provider: 08/19/24 05:33 Source: patient Mode of arrival: ambulatory Limitations: no limitations History of Present Illness HPI narrative: Patient presents with report that his spine has been shifting since Sunday. Denies any back pain explicitly, just that it is shifting. States this has been an issue since 2021 when he was bending frequently doing Denominational prayers. He states he recently stook for 2.5 hours and then 2 hours later he felt this sensation in his back. States diagnosed with scoliosis and they had discused possible spinal fusion but he has a new PCP who isn't aware of this issue. Has been wearing a flexible back brace. Went yesterday to a chiropractor, it had been awhile since he had seen one prior to that. He states he occasionally gets left axillary pain and inflammation when he eats. Had told triage this is better if he times his eating. Has not taken anything for pain because, again, not painful, just unstable . Had scans and an echo 2 months ago. Had been taking ISABEL but stopped because he has been drinking Boost. Also reports he went numb throughout his entire body for 15 minutes yesterday while seated. Concerned because also has been dribbling urine. Related Data Home Medications ?Medication ?Instructions ?Recorded ?Confirmed ?Last Taken ?Type esomeprazole magnesium 40 mg 40 mg PO DAILY 02/16/24 05/23/24 Unknown History capsule,delayed release (Nexium) lurasidone 20 mg tablet 10 mg PO DAILY 05/23/24 05/23/24 Unknown History Allergies Allergy/AdvReac Type Severity Reaction Status Date / Time No Known Allergies Allergy Verified 08/19/24 05:24 [facility] Past Medical History Medical History Urinary frequency Family History Family History Mother Family history of elevated blood lipids, Onset Age: 46 Father Family history of diabetes mellitus in first degree relative, Onset Age: 48 Social History Social History Social History: Single Smoking status: Former smoker Tobacco type: cigarettes Second hand tobacco smoke exposure: No Smoking end date: 05/07/13 Alcohol intake: never Substance use: never Substance use type: does not use Do You Feel Safe in your Home?: Yes Lack of Transportation: No Lack of Food: Never True Current Housing: I Have Housing Concerned About Future Housing: No Difficulty Paying Gas/Electric Bills: No Difficulty Paying for Meds: No Currently Unemployed: Decline to Answer Education: Associate Degree Difficulty w/ Childcare or Family Care: No Living arrangements: with family Occupation/Education: unemployed Additional occupation/education comments: Pt had to drop out of school due to health issues. Gender identity (if verbalized by the patient): Male Sexual Orientation (if Verbalized by the Patient): Straight or Heterosexual Spiritual care concerns: No Exam 2 Narrative: GENERAL: Well-appearing, well-nourished, and in no acute distress. HEAD: Normocephalic, atraumatic. EYES: Non injected, non icteric ENT: Nares clear, no rhinorrhea or epistaxis. NECK: Supple. CHEST: Speaking in full sentences. No respiratory distress. HEART: Regular rate and rhythm. . ABDOMEN: Soft, nondistended. EXTREMITIES: Normal range of motion. No lower extremity edema. SKIN: Warm, dry, no rash. BACK: No TTP of cervical, thoracic or lumbar spine. Patient can demonstrate some flexion at lumbar spine but afraid of performing forward flexion or side bends/rotational movement. Asymmetry of scapulae but no winging, possible due to patient positioning. NEURO: No focal deficits. Alert and oriented x3. Brisk bilateral patellar reflexes. 5/5 strength with bilateral ankle dorsiflexion/plantarflexion; b/l knee flexion/extension; b/l hip flexion/abduction/adduction. Sensation intact throughout bilateral lower extremities including thighs and calves. PSYCH: Congruent mood and affect. Course Vital Signs Vital signs: Vital Signs Temperature 97.6 F 08/19/24 05:14 Pulse Rate 106 H 08/19/24 05:14 Respiratory Rate 14 08/19/24 05:14 Blood Pressure 135/85 08/19/24 05:14 Pulse Oximetry 100 08/19/24 05:14 Oxygen Delivery Room Air 08/19/24 05:14 Temperature 97.6 F 08/19/24 05:14 Pulse Rate 105 H 08/19/24 07:47 Respiratory Rate 18 08/19/24 07:47 Blood Pressure 128/85 08/19/24 07:47 Pulse Oximetry 100 08/19/24 07:47 Oxygen Delivery Room Air 08/19/24 05:14 Medical Decision Making MDM Narrative Medical decision making narrative: Patient presents with concern that his spine is shifting. Not painful but feels like he will collapse if he doesn't wear the soft flexible back brace he has been wearing. Also reports an episode of 15 minutes with whole body numbness yesterday while at rest. In the emergency department he is afebrile with vital signs notable for tachycardia. CBC unremarkable. Urinalysis and chemistry normal. Imaging negative for acute process, only mild degeneration of thoracic spine. Discharged in stable condition and advised follow up with pcp. Vital Signs Vital Signs: Vital Signs Temperature 97.6 F 08/19/24 05:14 Pulse Rate 106 H 08/19/24 05:14 Respiratory Rate 14 08/19/24 05:14 Blood Pressure 135/85 08/19/24 05:14 Pulse Oximetry 100 08/19/24 05:14 Oxygen Delivery Room Air 08/19/24 05:14 Temperature 97.6 F 08/19/24 05:14 Pulse Rate 105 H 08/19/24 07:47 Respiratory Rate 18 08/19/24 07:47 Blood Pressure 128/85 08/19/24 07:47 Pulse Oximetry 100 08/19/24 07:47 Oxygen Delivery Room Air 08/19/24 05:14 Lab Data Lab results reviewed: Yes I reviewed the patient's lab results. 08/19/24 06:44 08/19/24 06:44 Labs: Lab Results 08/19/24 Range/Units 06:44 WBC 6.6 (4.5-10.0) K/mm3 RBC 5.47 (4.6-6.20) M/mm3 Hgb 16.3 (14.0-18.0) g/dL Hct 47.1 (42.0-52.0) % MCV 86.1 (80-100) fl MCH 29.8 (26-34) pg MCHC 34.6 (32-36) g/dl RDW 11.9 (11.5-14.5) % Plt Count 231 (150-375) k/mm3 MPV 9.9 (7.4-10.4) fl Immature Gran % (Auto) 0.3 (0-0.5) % Neut % (Auto) 71.0 (45.5-73.1) % Lymph % (Auto) 20.2 (18.3-44.2) % [place] % (Auto) 6.1 (2.6-8.5) % Eos % (Auto) 1.8 (0-4.4) % Baso % (Auto) 0.6 (0.2-1.2) % Lymph # (Auto) 1.33 (0.9-3.2) K/mm3 [place] # (Auto) 0.4 (0.1-0.6) K/mm3 Eos # (Auto) 0.1 (0-0.3) K/mm3 Baso # (Auto) 0.0 (0.0-0.1) K/mm3 Abs Immat Gran (auto) 0.02 (0.00-0.031) K/mm3 Absolute Neuts (auto) 4.7 (1.3-6.7) K/mm3 Absolute Nucleated RBC 0.000 (0.0-0.012) K/mm3 Nucleated RBC % 0.0 (0.0-0.2) % Sodium 141 (137-145) mmol/L Potassium 3.5 (3.4-5.0) mmol/L Chloride 102 (98-107) mmol/L Carbon Dioxide 28 (22-30) mmol/L Anion Gap 11 (4-12) mmol/L BUN 15 (9-20) mg/dL Creatinine 0.85 (0.7-1.3) mg/dL Estim Creat Clear Calc 95 ml/min Estimated GFR > 60 (59 - ) Glucose 109 (65-110) mg/dL Calcium 9.7 (8.4-10.2) mg/dL Magnesium 2.4 H (1.6-2.3) mg/dL Total Bilirubin 0.6 (0.2-1.3) mg/dL AST 20 (17-59) U/L ALT 15 (6-50) U/L Alkaline Phosphatase 59 (38-126) U/L Total Creatine Kinase 84 (55-170) U/L Total Protein 8.0 (6.3-8.2) g/dL Albumin 5.2 H (3.5-5.1) g/dL Urine Color Yellow (Yellow) Urine Appearance Clear (Clear) Urine pH 6.0 (5.0-9.0) Ur Specific [place] 1.016 (1.001-1.035) Urine Protein Negative (Negative) mg/dL Urine Glucose (UA) Negative (Negative) mg/dL Urine Ketones Negative (Negative) mg/dL Ur Blood (Man) Negative (Negative) Urine Nitrate Negative (Negative) Urine Bilirubin Negative (Negative) Urine Urobilinogen 0.2 (<2.0) mg/dL Leukocyte Esterase Rfl Negative (Negative) CAT/UL Imaging Data Radiologist's impression: Impression: Minimal degenerative change of the thoracic spine. Small nonobstructing right renal stone. Discharge Plan Discharge Clinical Impression: Degenerative disc disease, thoracic Patient Disposition: Home Condition: Stable Instructions: Antibiotic Form, Degenerative Disc Disease (ED) Additional Instructions: Your labs including electrolytes and your urinalysis are normal. Other than degenerative disease seen in your thoracic spine, no acute process. Follow-up with your primary care physician. Return to the ER if you have increased pain in your back, you develop lower extremity weakness/numbness/paralysis, you have numbness or tingling in your private parts, or you are unable to control your ability to urinate/stool. Patient Language: Thai Prescriptions: No Action esomeprazole magnesium [Nexium] 40 mg Capsule,Delayed Release(Dr/Ec) 40 mg PO DAILY lurasidone 20 mg tablet 10 mg PO DAILY Rx Instructions: must administer with food (at least 350 calories) Follow-up/Referrals: Urban Maza MD [Primary Care Provider] - Stand Alone Forms: Work/School Release IP Time of Disposition: 07:14
--- OUTSIDE RECORDS SUMMARY | 2024-08-19 06:06 | XMS_ITS | Encounter Summary ---
Author Organization [facility] [facility] Address 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
--- OUTSIDE RECORDS SUMMARY | 2024-08-19 06:06 | XMS_ITS | Clinical Summary ---
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 Gender Identity Not on file Sexual Orientation Not on file Obstetrics History Last Filed Vital Signs Vital Sign Reading Time Taken Comments Blood Pressure 110/80 03/15/2021 1:01 PM VP PUBLISHER DEVELOPMENT Pulse 77 03/15/2021 1:01 PM VP PUBLISHER DEVELOPMENT Temperature - - Respiratory Rate 12 03/15/2021 1:01 PM VP PUBLISHER DEVELOPMENT Oxygen Saturation 100% 08/18/2014 11: 30 AM CDT Inhaled Oxygen Concentration - - Weight 63.5 kg (139 lb 15.9 oz) 03/15/2021 1:01 PM VP PUBLISHER DEVELOPMENT Height 185.4 cm (6' 1 ) 10/04/2017 [...] age to complete this topic Insurance [facility] CHOICE [place] [facility] OPEN ACCESS [place] CHOICE [facility] [place] CHOICE [facility] [place]PO [place] [employer] [employer] [place] Care Teams Medical Advisor Relationship Specialty Start Date End Date Armando Gaspar MD [address] [facility] [address] [place] [address] PCP - General 08/09/17
--- OUTSIDE RECORDS SUMMARY | 2024-08-19 06:06 | XMS_ITS | Referral Summary ---
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 Gender Identity Not on file Sexual Orientation Not on file Last Filed Vital Signs Vital Sign Reading Time Taken Comments Blood Pressure 110/80 03/15/2021 1:01 PM HEARING AIDE TECHNICIAN Pulse 77 03/15/2021 1:01 PM HEARING AIDE TECHNICIAN Temperature - - Respiratory Rate 12 03/15/2021 1:01 PM HEARING AIDE TECHNICIAN Oxygen Saturation 100% 08/18/2014 11: 30 AM CDT Inhaled Oxygen Concentration - - Weight 63.5 kg (139 lb 15.9 oz) 03/15/2021 1:01 PM HEARING AIDE TECHNICIAN Height 185.4 cm (6' 1 ) 10/04/2017 2:04 PM CDT Body Mass Index 18.47 10/04/2017 2:04 PM CDT Plan of Treatment Not on file Insurance ANTHEM ACCESS CHOICE BL CHOICE [facility] [place] [employer] OPEN ACCESS [place] CHOICE [place] CHOICE PRF P[place] [employer]URE[employer] DIS[place] Care Teams Bladder Blower Relationship Specialty Start Date End Date Armando Gaspar MD [address] [address] PCP - General 08/09/17
--- OUTSIDE RECORDS SUMMARY | 2024-08-19 06:06 | XMS_ITS | Clinical Summary ---
Author Organization [facility] Address [address] 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
--- OUTSIDE RECORDS SUMMARY | 2024-08-19 06:06 | XMS_ITS | Encounter Summary ---
Author Organization [facility] Address [address] [place] [address] Care Team Providers Care Career Placement Specialist Name Role Phone Unavailable Primary Care Provider Unavailabl e Encounter Details Date Type Department Care Team (Late st Contact Info) Description 01/19/2006 Outpatient Historical HIS MRI DEPT Nicolás Tavares MD [address] [place] [address] Pain in Joint, Lower Leg (Primary Dx) Social History Tobacco Use Types Packs/Day Years Used Date Smoking Tobacco: Never Assessed Sex and Gender Information Value Date Recorded Sex Assigned at Not on file Legal Sex Male 3:58 AM UNCLAIMED PROPERTY OFFICER Gender Identity Not on file Sexual Orientation Not on file documented as of this encounter Plan of Treatment Not on file documented as of this encounter Visit Diagnoses Diagnosis Pain in joint, lower leg- Primary documented in this encounter
--- OUTSIDE RECORDS SUMMARY | 2024-08-19 06:06 | XMS_ITS | Encounter Summary ---
Author Organization [facility] Address [address] [place] [address] Care Team Providers Care Mat Packer Name Role Phone Unavailable Primary Care Provider [...] on file Legal Sex Male 3:58 AM CAN PUSHER Gender Identity Not on file Sexual Orientation Not on file documented as of this encounter Plan of Treatment Not on file documented as of this encounter Visit Diagnoses Not on filedocumented in this encounter
--- OUTSIDE RECORDS SUMMARY | 2024-08-19 06:06 | XMS_ITS | Encounter Summary ---
Author Organization [facility] Address 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
--- OUTSIDE RECORDS SUMMARY | 2024-08-19 06:06 | XMS_ITS | Encounter Summary ---
Author Organization [facility] Address 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
[2024-08-19 06:51] LABS: Basophils Percent Auto 0.6 % (0.2-1.2); Eosinophils Absolute Auto 0.1 K/mm3 (0-0.3); Eosinophils Percent Auto 1.8 % (0-4.4); Hematocrit 47.1 % (42.0-52.0); Hemoglobin 16.3 g/dL (14.0-18.0); Immature Granulocyte Absolute 0.02 K/mm3 (0.00-0.031); Immature Granulocyte Percent A 0.3 % (0-0.5); Lymphocytes Absolute Auto 1.33 K/mm3 (0.9-3.2); Lymphocytes Percent Auto 20.2 % (18.3-44.2); Mean Corpuscular HGB Conc 34.6 g/dl (32-36); Mean Corpuscular Hemoglobin 29.8 pg (26-34); Mean Corpuscular Volume 86.1 fl (80-100); Mean Platelet Volume 9.9 fl (7.4-10.4); Monocytes Absolute Auto 0.4 K/mm3 (0.1-0.6); Monocytes Percent Auto 6.1 % (2.6-8.5); Neutrophils Absolute Auto 4.7 K/mm3 (1.3-6.7); Platelet Count Result 231 k/mm3 (150-375); Red Blood Count 5.47 M/mm3 (4.6-6.20); Red Cell Distribution Width 11.9 % (11.5-14.5); White Blood Count 6.6 K/mm3 (4.5-10.0)
[2024-08-19 06:52] LABS: Add Urine Microscopic? NO; Appearance Urine Clear (Clear); Bilirubin Urine Negative (Negative); Blood Urine Negative (Negative); Color Urine Yellow (Yellow); Glucose Urine UA Negative (Negative); Ketones Urine Negative (Negative); Leukocyte Esterase Ur Negative LEU/UL (Negative); Nitrate Urine Negative (Negative); Protein Urine Negative (Negative); Specific Grav Ur 1.016 (1.001-1.035); Urobilinogen Urine 0.2 mg/dL (<2.0)
[2024-08-19 06:53] VITALS: BP 130/86; PULSE 93; RESP 14; O2SAT 100
[2024-08-19 07:00] LABS: Alanine Aminotransferase 15 U/L (6-50); Albumin Level 5.2 g/dL (3.5-5.1); Alkaline Phosphatase 59 U/L (38-126); Anion Gap 11 mmol/L (4-12); Aspartate Amino Transferase 20 U/L (17-59); Bilirubin,Total 0.6 mg/dL (0.2-1.3); Blood Urea Nitrogen 15 mg/dL (9-20); Calcium 9.7 mg/dL (8.4-10.2); Carbon Dioxide 28 mmol/L (22-30); Chloride 102 mmol/L (98-107); Creatine Kinase 84 U/L (55-170); Estimated CRCL calculation 95 ml/min; Estimated Glomerular Filt Rate > 60; Glucose 109 mg/dL (65-110); Magnesium 2.4 mg/dL (1.6-2.3); Potassium 3.5 mmol/L (3.4-5.0); Sodium 141 mmol/L (137-145)
[2024-08-19 07:47] VITALS: BP 128/85; PULSE 105; RESP 18; O2SAT 100
== END 2024-08-19 07:49 | disposition home or self-care (01) ==
PROVIDERS: Emergency Provider Student in an Organized Health Care Education/Training Program; PCP Emergency Medicine
DX: M51.34 Other intervertebral disc degeneration, thoracic region (principal); M41.9 Scoliosis, unspecified; Z87.891 Personal history of nicotine dependence; N20.0 Calculus of kidney
CPT/HCPCS: 36415; 72128; 72131; 80053; 81003; 82550; 83735; 85025; 99284

== ENCOUNTER 2024-08-20 06:15 | Emergency (ER) | payer OTHER, SELFPAY ==
--- NOTE | ~2024-08-20 | CT_ITS ---
Clinical Indication: Chest pain, pelvic pain CT Scan of the Chest, Abdomen, and Pelvis with Contrast: Technique: Contiguous sections were acquired throughout the chest, abdomen, and pelvis after intraven ous administration of 100 cc of Omnipaque 350. Dose reduction technique was used on this scan by pam mossing automated exposure control and iterative reconstruction technique. The dose-length product (DL P) was 531.87 mGy-cm. Comparison: 09/23/2021 Findings: There is no evidence of any significant mediastinal, hilar or axillary lymphadenopathy. The mediastin al soft tissues appear normal. No pulmonary embolus. No aortic aneurysm or dissection. There is no evidence of pleural or pericardial effusion. The lungs are clear. No pulmonary nodules or infiltrates are noted. The liver, spleen, pancreas, gallbladder, adrenals and kidneys are within normal limits. No evidence of aortic aneurysm. No lymphadenopathy. No bowel obstruction or bowel wall thickening. There is no evidence to suggest acute appendicitis. Urinary bladder is unremarkable. No pelvic mass seen. No ascites. Impression: No significant abnormalities seen. Reviewed, dictated and finalized at [facility]. Impression: No significant abnormalities seen.
[2024-08-20 06:15] VITALS: BP 141/98; PULSE 100; RESP 15; TEMP 36.6; O2SAT 100
--- NOTE | 2024-08-20 06:30 | ECG_ITS ---
Test Date: 2024-08-20 06:23:59 Measurements Intervals [place] Rate: 97 P: 69 MO: 131 QRS: 60 QRSD: 105 T: 38 QT: 329 QTc: 419 Interpretive Statements SINUS RHYTHM INCOMPLETE RIGHT BUNDLE BRANCH BLOCK BASELINE ARTIFACT- I, II, III, AVR, AVL, AVF, V2-V6 BORDERLINE ECG Compared to ECG 07/29/2024 12:57:25 NO SIGNIFICANT CHANGE Electronically Signed On 08-20-2024 07:43:25 CDT by Mesfin Lares D.O.
[2024-08-20 06:49] LABS: Basophils Absolute Auto 0.1 K/mm3 (0.0-0.1); Basophils Percent Auto 0.8 % (0.2-1.2); Eosinophils Absolute Auto 0.1 K/mm3 (0-0.3); Eosinophils Percent Auto 1.6 % (0-4.4); Hematocrit 46.1 % (42.0-52.0); Hemoglobin 15.8 g/dL (14.0-18.0); Immature Granulocyte Absolute 0.02 K/mm3 (0.00-0.031); Immature Granulocyte Percent A 0.3 % (0-0.5); Lymphocytes Absolute Auto 1.37 K/mm3 (0.9-3.2); Lymphocytes Percent Auto 18.7 % (18.3-44.2); Mean Corpuscular HGB Conc 34.3 g/dl (32-36); Mean Corpuscular Hemoglobin 29.5 pg (26-34); Mean Corpuscular Volume 86.2 fl (80-100); Mean Platelet Volume 10.5 fl (7.4-10.4); Monocytes Absolute Auto 0.4 K/mm3 (0.1-0.6); Monocytes Percent Auto 5.7 % (2.6-8.5); Neutrophils Absolute Auto 5.4 K/mm3 (1.3-6.7); Neutrophils Percent Auto 72.9 % (45.5-73.1); Platelet Count Result 230 k/mm3 (150-375); Red Blood Count 5.35 M/mm3 (4.6-6.20); Red Cell Distribution Width 11.9 % (11.5-14.5); White Blood Count 7.3 K/mm3 (4.5-10.0)
[2024-08-20 07:01] LABS: Alanine Aminotransferase 16 U/L (6-50); Albumin Level 5.2 g/dL (3.5-5.1); Alkaline Phosphatase 81 U/L (38-126); Anion Gap 11 mmol/L (4-12); Aspartate Amino Transferase 20 U/L (17-59); Bilirubin,Total 0.5 mg/dL (0.2-1.3); Blood Urea Nitrogen 17 mg/dL (9-20); Calcium 9.6 mg/dL (8.4-10.2); Carbon Dioxide 27 mmol/L (22-30); Chloride 102 mmol/L (98-107); Estimated CRCL calculation 106 ml/min; Estimated Glomerular Filt Rate > 60; Glucose 119 mg/dL (65-110); Magnesium 2.4 mg/dL (1.6-2.3); Potassium 3.7 mmol/L (3.4-5.0); Sodium 140 mmol/L (137-145)
[2024-08-20 07:13] LABS: Troponin I < 0.012 ng/mL (0.000-0.034)
--- OUTSIDE RECORDS SUMMARY | 2024-08-20 07:25 | XMS_ITS | Clinical Summary ---
Author Organization [facility] Address [address] 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
--- OUTSIDE RECORDS SUMMARY | 2024-08-20 07:25 | XMS_ITS | Clinical Summary ---
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 Gender Identity Not on file Sexual Orientation Not on file Obstetrics History Last Filed Vital Signs Vital Sign Reading Time Taken Comments Blood Pressure 110/80 03/15/2021 1:01 PM ROOFING SUPERINTENDENT Pulse 77 03/15/2021 1:01 PM ROOFING SUPERINTENDENT Temperature - - Respiratory Rate 12 03/15/2021 1:01 PM ROOFING SUPERINTENDENT Oxygen Saturation 100% 08/18/2014 11: 30 AM CDT Inhaled Oxygen Concentration - - Weight 63.5 kg (139 lb 15.9 oz) 03/15/2021 1:01 PM ROOFING SUPERINTENDENT Height 185.4 cm (6' 1 ) 10/04/2017 [...] patient's age to complete this topic Insurance [facility] CHOICE [place] CHO[place] [facility] OPEN ACCESS BL CHOICE [facility] [place] CHOICE [facility] PPO [place] [employer]URE[employer] OF DIS[place] Care Teams Lamp Wirer Relationship Specialty Start Date End Date Armando Gaspar MD [address] [facility] [address] [place] [address] PCP - General 08/09/17
--- OUTSIDE RECORDS SUMMARY | 2024-08-20 07:25 | XMS_ITS | Referral Summary ---
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 Gender Identity Not on file Sexual Orientation Not on file Last Filed Vital Signs Vital Sign Reading Time Taken Comments Blood Pressure 110/80 03/15/2021 1:01 PM BRAKE REPAIRER BUS Pulse 77 03/15/2021 1:01 PM BRAKE REPAIRER BUS Temperature - - Respiratory Rate 12 03/15/2021 1:01 PM BRAKE REPAIRER BUS Oxygen Saturation 100% 08/18/2014 11: 30 AM CDT Inhaled Oxygen Concentration - - Weight 63.5 kg (139 lb 15.9 oz) 03/15/2021 1:01 PM BRAKE REPAIRER BUS Height 185.4 cm (6' 1 ) 10/04/2017 2:04 PM CDT Body Mass Index 18.47 10/04/2017 2:04 PM CDT Plan of Treatment Not on file Insurance ANTHEM ACCESS CHOICE BL CHOICE [facility] [place] CHO[place] CHO[place]F [place] [employer]URE[employer] DIS[place] Care Teams Shelving Supervisor Relationship Specialty Start Date End Date Armando Gaspar MD [address] [address] PCP - General 08/09/17
--- OUTSIDE RECORDS SUMMARY | 2024-08-20 07:26 | XMS_ITS | Encounter Summary ---
Author Organization [facility] Address 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
--- OUTSIDE RECORDS SUMMARY | 2024-08-20 07:26 | XMS_ITS | Encounter Summary ---
Author Organization [facility] Address [address] [place] [address] Care Team Providers Care Burning Plant Operator Name Role Phone Unavailable Primary Care Provider Unavailabl e Encounter Details Date Type Department Care Team (Late st Contact Info) Description 01/19/2006 Outpatient Historical HIS MRI DEPT Nicolás Tavares MD [address] [facility] [place] [place] [address] Pain in Joint, Lower Leg (Primary Dx) Social History Tobacco Use Types Packs/Day Years Used Date Smoking Tobacco: Never Assessed Sex and Gender Information Value Date Recorded Sex Assigned at Not on file Legal Sex Male 3:58 AM SURGICAL ATTENDANT Gender Identity Not on file Sexual Orientation Not on file documented as of this encounter Plan of Treatment Not on file documented as of this encounter Visit Diagnoses Diagnosis Pain in joint, lower leg- Primary documented in this encounter
--- OUTSIDE RECORDS SUMMARY | 2024-08-20 07:26 | XMS_ITS | Encounter Summary ---
Author Organization [facility] Address [address] [place] [address] Care Team Providers Care Mine Car Repairer Name Role Phone Unavailable Primary Care Provider [...] on file Legal Sex Male 3:58 AM CENTRAL OFFICE REPAIRER Gender Identity Not on file Sexual Orientation Not on file documented as of this encounter Plan of Treatment Not on file documented as of this encounter Visit Diagnoses Not on filedocumented in this encounter
--- OUTSIDE RECORDS SUMMARY | 2024-08-20 07:26 | XMS_ITS | Encounter Summary ---
Author Organization [facility] Address 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
--- OUTSIDE RECORDS SUMMARY | 2024-08-20 07:26 | XMS_ITS | Encounter Summary ---
Author Organization [facility] Address 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
[2024-08-20] MEDS: LORazepam INJ (*CRX) 2 MG/ML VIAL 1 MG IV PUSH (07:50)
[2024-08-20 08:47] LABS: Creatine Kinase 89 U/L (55-170)
[2024-08-20 08:48] LABS: Lactic Acid Reflex 1.2 mmol/L (0.7-2.0)
[2024-08-20 09:18] VITALS: BP 127/87; PULSE 105; RESP 20; O2SAT 100
--- NOTE | 2024-08-20 09:51 | ED_ITS ---
HPI - General Adult General Chief complaint: Back Pain/Injury Stated complaint: back pain Time Seen by Provider: 08/20/24 07:14 History of Present Illness HPI narrative: Patient is a 29-year-old gentleman who presents emergency department with chief complaint it feels like my back is shifting the patient also reports that he has tenderness in the area of from his scrotum to his anus. The patient states that he does feels weak and feels run down The patient was seen in the emergency department recently and had CTs of his thoracic and lumbar spine. These were negative Related Data Home Medications ?Medication ?Instructions ?Recorded ?Confirmed ?Last Taken ?Type esomeprazole magnesium 40 mg 40 mg PO DAILY 02/16/24 05/23/24 Unknown History capsule,delayed release (Nexium) lurasidone 20 mg tablet 10 mg PO DAILY 05/23/24 05/23/24 Unknown History Allergies Allergy/AdvReac Type Severity Reaction Status Date / Time No Known Allergies Allergy Verified 08/19/24 05:24 Review of Systems 2 Review of Systems: A 10 system review of systems was completed on the patient and is negative except for what is stated in the HPI. Nursing and ancillary documentation was reviewed. [facility] Past Medical History Medical History Urinary frequency Family History Family History Mother Family history of elevated blood lipids, Onset Age: 46 Father Family history of diabetes mellitus in first degree relative, Onset Age: 48 Social History Social History Social History: Single Smoking status: Former smoker Tobacco type: cigarettes Second hand tobacco smoke exposure: No Smoking end date: 05/07/13 Alcohol intake: never Substance use: never Substance use type: does not use Do You Feel Safe in your Home?: Yes Lack of Transportation: No Lack of Food: Never True Current Housing: I Have Housing Concerned About Future Housing: No Difficulty Paying Gas/Electric Bills: No Difficulty Paying for Meds: No Currently Unemployed: Decline to Answer Education: Associate Degree Difficulty w/ Childcare or Family Care: No Living arrangements: with family Occupation/Education: unemployed Additional occupation/education comments: Pt had to drop out of school due to health issues. Gender identity (if verbalized by the patient): Male Sexual Orientation (if Verbalized by the Patient): Straight or Heterosexual Spiritual care concerns: No Exam 2 Narrative: GENERAL: Well-appearing, well-nourished, and in no acute distress. HEAD: Normocephalic, atraumatic. EYES: PERRLA and EOMI. ENT: Nares clear, no rhinorrhea or epistaxis. Mucous membranes moist. NECK: Supple. CHEST: Clear to auscultation. No respiratory distress. HEART: Regular rate and rhythm. No murmur heard. Normal peripheral pulses. ABDOMEN: Soft, nontender, nondistended, normal active bowel sounds. EXTREMITIES: Normal range of motion. No edema. : No large appreciable abscess no redness no fluctuance no crepitance SKIN: Warm, dry, no rash. NEURO: No focal deficits. Alert and oriented x3. PSYCH: Normal mood and affect. Course Vital Signs Vital signs: Vital Signs Temperature 36.6 C 08/20/24 06:15 Pulse Rate 100 08/20/24 06:15 Respiratory Rate 15 08/20/24 06:15 Blood Pressure 141/98 H 08/20/24 06:15 Pulse Oximetry 100 08/20/24 06:15 Oxygen Delivery Room Air 08/20/24 06:15 Temperature 36.6 C 08/20/24 06:15 Pulse Rate 105 H 08/20/24 09:18 Respiratory Rate 20 08/20/24 09:18 Blood Pressure 127/87 08/20/24 09:18 Pulse Oximetry 100 08/20/24 09:18 Oxygen Delivery Room Air 08/20/24 06:15 Medical Decision Making [facility] Narrative Medical decision making narrative: Differential diagnosis includes pulmonary embolism ACS, chest wall pain, perianal abscess Laboratory studies were obtained on the patient showed normal CBC normal CMP troponin was negative CTA of the chest showed no evidence of pulmonary embolism CT scan of the abdomen pelvis showed no appreciable abscess CPK was obtained on the patient showed no evidence of rhabdomyolysis Patient will be discharged home follow-up with his primary care provider Vital Signs Vital Signs: Vital Signs Temperature 36.6 C 08/20/24 06:15 Pulse Rate 100 08/20/24 06:15 Respiratory Rate 15 08/20/24 06:15 Blood Pressure 141/98 H 08/20/24 06:15 Pulse Oximetry 100 08/20/24 06:15 Oxygen Delivery Room Air 08/20/24 06:15 Temperature 36.6 C 08/20/24 06:15 Pulse Rate 105 H 08/20/24 09:18 Respiratory Rate 20 08/20/24 09:18 Blood Pressure 127/87 08/20/24 09:18 Pulse Oximetry 100 08/20/24 09:18 Oxygen Delivery Room Air 08/20/24 06:15 Lab Data 08/20/24 06:33 08/20/24 06:33 Labs: Lab Results 08/20/24 08/20/24 Range/Units 06:33 08:26 WBC 7.3 (4.5-10.0) K/mm3 RBC 5.35 (4.6-6.20) M/mm3 Hgb 15.8 (14.0-18.0) g/dL Hct 46.1 (42.0-52.0) % MCV 86.2 (80-100) fl MCH 29.5 (26-34) pg MCHC 34.3 (32-36) g/dl RDW 11.9 (11.5-14.5) % Plt Count 230 (150-375) k/mm3 MPV 10.5 H (7.4-10.4) fl Immature Gran % (Auto) 0.3 (0-0.5) % Neut % (Auto) 72.9 (45.5-73.1) % Lymph % (Auto) 18.7 (18.3-44.2) % [place] % (Auto) 5.7 (2.6-8.5) % Eos % (Auto) 1.6 (0-4.4) % Baso % (Auto) 0.8 (0.2-1.2) % Lymph # (Auto) 1.37 (0.9-3.2) K/mm3 [place] # (Auto) 0.4 (0.1-0.6) K/mm3 Eos # (Auto) 0.1 (0-0.3) K/mm3 Baso # (Auto) 0.1 (0.0-0.1) K/mm3 Abs Immat Gran (auto) 0.02 (0.00-0.031) K/mm3 Absolute Neuts (auto) 5.4 (1.3-6.7) K/mm3 Absolute Nucleated RBC 0.000 (0.0-0.012) K/mm3 Nucleated RBC % 0.0 (0.0-0.2) % Sodium 140 (137-145) mmol/L Potassium 3.7 (3.4-5.0) mmol/L Chloride 102 (98-107) mmol/L Carbon Dioxide 27 (22-30) mmol/L Anion Gap 11 (4-12) mmol/L BUN 17 (9-20) mg/dL Creatinine 0.83 (0.7-1.3) mg/dL Estim Creat Clear Calc 106 ml/min Estimated GFR > 60 (59 - ) Glucose 119 H (65-110) mg/dL Lactic Acid 1.2 (0.7-2.0) mmol/L Calcium 9.6 (8.4-10.2) mg/dL Magnesium 2.4 H (1.6-2.3) mg/dL Total Bilirubin 0.5 (0.2-1.3) mg/dL AST 20 (17-59) U/L ALT 16 (6-50) U/L Alkaline Phosphatase 81 (38-126) U/L Total Creatine Kinase 89 (55-170) U/L Troponin I < 0.012 (0.000-0.034) ng/mL Total Protein 8.0 (6.3-8.2) g/dL Albumin 5.2 H (3.5-5.1) g/dL Discharge Plan Discharge Clinical Impression: Atypical chest pain, Perineal pain in male, Myalgia Patient Disposition: Home Condition: Stable Instructions: Antibiotic Form, Chest Pain (ED), Back Pain (ED) Patient Language: Tamazight Prescriptions: No Action esomeprazole magnesium [Nexium] 40 mg Capsule,Delayed Release(Dr/Ec) 40 mg PO DAILY lurasidone 20 mg tablet 10 mg PO DAILY Rx Instructions: must administer with food (at least 350 calories) Follow-up/Referrals: Urban Maza MD [Primary Care Provider] - Time of Disposition: 09:55
[2024-08-20 10:07] VITALS: BP 131/91; PULSE 102; RESP 17; O2SAT 100
== END 2024-08-20 10:09 | disposition home or self-care (01) ==
PROVIDERS: Emergency Medicine; Emergency Provider Emergency Medicine; PCP Emergency Medicine
DX: M79.10 Myalgia, unspecified site (principal); R07.89 Other chest pain; R10.2 Pelvic and perineal pain; Z87.891 Personal history of nicotine dependence; I45.10 Unspecified right bundle-branch block
CPT/HCPCS: 36415; 71275; 74177; 80053; 82550; 83605; 83735; 84484; 85025; 93005; 96374; 99284; J2060; Q9967

== ENCOUNTER 2024-08-21 08:57 | Emergency (ER) | payer OTHER, SELFPAY ==
--- OUTSIDE RECORDS SUMMARY | 2024-08-21 09:18 | XMS_ITS | Clinical Summary ---
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 Gender Identity Not on file Sexual Orientation Not on file Obstetrics History Last Filed Vital Signs Vital Sign Reading Time Taken Comments Blood Pressure 110/80 03/15/2021 1:01 PM EVAPORATIVE COOLER INSTALLER Pulse 77 03/15/2021 1:01 PM EVAPORATIVE COOLER INSTALLER Temperature - - Respiratory Rate 12 03/15/2021 1:01 PM EVAPORATIVE COOLER INSTALLER Oxygen Saturation 100% 08/18/2014 11: 30 AM CDT Inhaled Oxygen Concentration - - Weight 63.5 kg (139 lb 15.9 oz) 03/15/2021 1:01 PM EVAPORATIVE COOLER INSTALLER Height 185.4 cm (6' 1 ) 10/04/2017 [...] patient's age to complete this topic Insurance [facility] CHOICE [place] [facility] OPEN [facility] PPO [place] [employer] DIS[employer] Care Teams Tank Refinisher Relationship Specialty Start Date End Date Armando Gaspar MD [address] [facility] [address] [place] [address] PCP - General 08/09/17
--- OUTSIDE RECORDS SUMMARY | 2024-08-21 09:18 | XMS_ITS | Referral Summary ---
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 Gender Identity Not on file Sexual Orientation Not on file Last Filed Vital Signs Vital Sign Reading Time Taken Comments Blood Pressure 110/80 03/15/2021 1:01 PM SCIENTIFIC INFORMATICS PROJECT LEADER Pulse 77 03/15/2021 1:01 PM SCIENTIFIC INFORMATICS PROJECT LEADER Temperature - - Respiratory Rate 12 03/15/2021 1:01 PM SCIENTIFIC INFORMATICS PROJECT LEADER Oxygen Saturation 100% 08/18/2014 11: 30 AM CDT Inhaled Oxygen Concentration - - Weight 63.5 kg (139 lb 15.9 oz) 03/15/2021 1:01 PM SCIENTIFIC INFORMATICS PROJECT LEADER Height 185.4 cm (6' 1 ) 10/04/2017 2:04 PM CDT Body Mass Index 18.47 10/04/2017 2:04 PM CDT Plan of Treatment Not on file Insurance ANTHEM ACCESS CHOICE BL CHOICE [facility] [place] [employer] OPEN ACCESS [place] CHOICE [place] CHO[place]F [place] [employer] Care Teams Veneer Glue Spreader Relationship Specialty Start Date End Date Armando Gaspar MD [address] [address] PCP - General 08/09/17
--- OUTSIDE RECORDS SUMMARY | 2024-08-21 09:19 | XMS_ITS | Encounter Summary ---
Author Organization [facility] Address 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
--- OUTSIDE RECORDS SUMMARY | 2024-08-21 09:19 | XMS_ITS | Encounter Summary ---
Author Organization [facility] Address [address] [place] [address] Care Team Providers Care Cigar Patcher Name Role Phone Unavailable Primary Care Provider [...] on file Legal Sex Male 3:58 AM RUBBER GRINDER Gender Identity Not on file Sexual Orientation Not on file documented as of this encounter Plan of Treatment Not on file documented as of this encounter Visit Diagnoses Not on filedocumented in this encounter
--- OUTSIDE RECORDS SUMMARY | 2024-08-21 09:19 | XMS_ITS | Encounter Summary ---
Author Organization [facility] Address 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
--- OUTSIDE RECORDS SUMMARY | 2024-08-21 09:19 | XMS_ITS | Clinical Summary ---
Author Organization [facility] Address [address] [place]: Epic Prelude ADT [place] [address] Care Team Providers Care Dietist Name Role Phone Unavailable Primary Care Provider Unavailabl e Social History Tobacco Use Types Packs/Day Years Used Date Smoking Tobacco: Never Assessed Sex and Gender Information Value Date Recorded Sex Assigned at Not on file Legal Sex Male 3:58 AM MANAGED CARE LIAISON Gender Identity Not on file Sexual Orientation [...]
--- OUTSIDE RECORDS SUMMARY | 2024-08-21 09:19 | XMS_ITS | Encounter Summary ---
Author Organization [facility] Address 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
--- OUTSIDE RECORDS SUMMARY | 2024-08-21 09:19 | XMS_ITS | Encounter Summary ---
Author Organization [facility] Address 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
[2024-08-21 09:31] VITALS: BP 153/98; PULSE 82; RESP 16; TEMP 36.6; O2SAT 99
--- OUTSIDE RECORDS SUMMARY | 2024-08-21 11:17 | XMS_ITS | Referral Summary ---
Author Organization [facility] Address [address] [place] [address] Care Team Providers Care Lactation Nurse Name Role Phone Armando Gaspar MD Primary [...] on file Legal Sex Male 3:32 AM LEASE PICKER Gender Identity Not on file Sexual Orientation Not on file Last Filed Vital Signs Vital Sign Reading Time Taken Comments Blood Pressure 110/80 03/15/2021 1:01 PM LEASE PICKER Pulse 77 03/15/2021 1:01 PM LEASE PICKER Temperature - - Respiratory Rate 12 03/15/2021 1:01 PM LEASE PICKER Oxygen Saturation 100% 08/18/2014 11: 30 AM CDT Inhaled Oxygen Concentration - - Weight 63.5 kg (139 lb 15.9 oz) 03/15/2021 1:01 PM LEASE PICKER Height 185.4 cm (6' 1 ) 10/04/2017 2:04 PM CDT Body Mass Index 18.47 10/04/2017 2:04 PM CDT Plan of Treatment Not on file Insurance ANTHEM ACCESS CHOICE BL CHOICE [facility] [place] ACC[place] CHOICE [place] CHO[place] [employer] Care Teams Lactation Nurse Relationship Specialty Start Date End Date Armando Gaspar MD [address] [address] PCP - General 08/09/17
--- OUTSIDE RECORDS SUMMARY | 2024-08-21 11:17 | XMS_ITS | Clinical Summary ---
Author Organization [facility] Address [facility] [place] [address] Care Team Providers Care Tape Transferrer Name Role Phone Armando Gaspar MD Primary [...] on file Legal Sex Male 3:32 AM RECONCILIATION CLERK Gender Identity Not on file Sexual Orientation Not on file Obstetrics History Last Filed Vital Signs Vital Sign Reading Time Taken Comments Blood Pressure 110/80 03/15/2021 1:01 PM RECONCILIATION CLERK Pulse 77 03/15/2021 1:01 PM RECONCILIATION CLERK Temperature - - Respiratory Rate 12 03/15/2021 1:01 PM RECONCILIATION CLERK Oxygen Saturation 100% 08/18/2014 11: 30 AM CDT Inhaled Oxygen Concentration - - Weight 63.5 kg (139 lb 15.9 oz) 03/15/2021 1:01 PM RECONCILIATION CLERK Height 185.4 cm (6' 1 ) 10/04/2017 [...] patient's age to complete this topic Insurance [facility] CHO[facility] [place] CHOICE [place]F [place] [facility] [place] [facility] PPO [place] [employer] Care Teams Tape Transferrer Relationship Specialty Start Date End Date Armando Gaspar MD [address] [facility] [address] [place] [address] PCP - General 08/09/17
--- OUTSIDE RECORDS SUMMARY | 2024-08-21 11:17 | XMS_ITS | Encounter Summary ---
Author Organization [facility] Address [address] [place] [address] Care Team Providers Care Fast Food Supervisor Name Role Phone Unavailable Primary Care [...] on file Legal Sex Male 3:58 AM DIRECTOR OF CONTENT MARKETING Gender Identity Not on file Sexual Orientation Not on file documented as of this encounter Plan of Treatment Not on file documented as of this encounter Visit Diagnoses Not on filedocumented in this encounter
--- OUTSIDE RECORDS SUMMARY | 2024-08-21 11:17 | XMS_ITS | Encounter Summary ---
Author Organization [facility] Address [address] [place] [address] Care Team Providers Care Electronic Systems Security Assessment Name Role Phone Unavailable Primary Care Provider [...] on file Legal Sex Male 3:58 AM BRASS BURNISHER Gender Identity Not on file Sexual Orientation Not on file documented as of this encounter Plan of Treatment Not on file documented as of this encounter Visit Diagnoses Not on filedocumented in this encounter
--- OUTSIDE RECORDS SUMMARY | 2024-08-21 11:17 | XMS_ITS | Encounter Summary ---
Author Organization [facility] Address 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
--- OUTSIDE RECORDS SUMMARY | 2024-08-21 11:17 | XMS_ITS | Encounter Summary ---
Author Organization [facility] Address [address] [place] [address] Care Team Providers Care Group Social Worker Name Role Phone Unavailable Primary Care [...] on file Legal Sex Male 3:58 AM CHARGE ENTRY SPECIALIST Gender Identity Not on file Sexual Orientation Not on file documented as of this encounter Plan of Treatment Not on file documented as of this encounter Visit Diagnoses Not on filedocumented in this encounter
--- OUTSIDE RECORDS SUMMARY | 2024-08-21 11:17 | XMS_ITS | Clinical Summary ---
Author Organization [facility] Address [address] 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
--- OUTSIDE RECORDS SUMMARY | 2024-08-21 11:17 | XMS_ITS | Encounter Summary ---
Author Organization [facility] Address [address] [place] [address] Care Team Providers Care Rn Shift Mgr Name Role Phone Unavailable Primary Care Provider Unavailabl e Encounter Details Date Type Department Care Team (Late st Contact Info) Description 01/19/2006 Outpatient Historical HIS MRI DEPT Nicolás Tavares MD [address] [facility] [place] [address] Pain in Joint, Lower Leg (Primary Dx) Social History Tobacco Use Types Packs/Day Years Used Date Smoking Tobacco: Never Assessed Sex and Gender Information Value Date Recorded Sex Assigned at Not on file Legal Sex Male 3:58 AM LEARNING CONSULTANT Gender Identity Not on file Sexual Orientation Not on file documented as of this encounter Plan of Treatment Not on file documented as of this encounter Visit Diagnoses Diagnosis Pain in joint, lower leg- Primary documented in this encounter
[2024-08-21 11:21] VITALS: BP 152/88; PULSE 82; RESP 16; TEMP 36.7; O2SAT 100
[2024-08-21 11:28] LABS: Basophils Absolute Auto 0.1 K/mm3 (0.0-0.1); Basophils Percent Auto 0.8 % (0.2-1.2); Eosinophils Absolute Auto 0.2 K/mm3 (0-0.3); Hemoglobin 14.9 g/dL (14.0-18.0); Immature Granulocyte Absolute 0.01 K/mm3 (0.00-0.031); Immature Granulocyte Percent A 0.2 % (0-0.5); Lymphocytes Absolute Auto 1.43 K/mm3 (0.9-3.2); Lymphocytes Percent Auto 22.9 % (18.3-44.2); Mean Corpuscular HGB Conc 34.7 g/dl (32-36); Mean Corpuscular Volume 86.7 fl (80-100); Mean Platelet Volume 9.8 fl (7.4-10.4); Monocytes Absolute Auto 0.6 K/mm3 (0.1-0.6); Monocytes Percent Auto 9.1 % (2.6-8.5); Platelet Count Result 223 k/mm3 (150-375); Red Blood Count 4.96 M/mm3 (4.6-6.20); Red Cell Distribution Width 11.9 % (11.5-14.5); White Blood Count 6.3 K/mm3 (4.5-10.0)
[2024-08-21 11:30] LABS: Add Urine Microscopic? NO; Appearance Urine Clear (Clear); Bilirubin Urine Negative (Negative); Blood Urine Negative (Negative); Color Urine Yellow (Yellow); Glucose Urine UA Negative (Negative); Ketones Urine Negative (Negative); Leukocyte Esterase Ur Negative LEU/UL (Negative); Nitrate Urine Negative (Negative); Protein Urine Negative (Negative); Specific Grav Ur 1.018 (1.001-1.035)
[2024-08-21 11:39] LABS: Alanine Aminotransferase 15 U/L (6-50); Albumin Level 4.7 g/dL (3.5-5.1); Alkaline Phosphatase 61 U/L (38-126); Anion Gap 5 mmol/L (4-12); Aspartate Amino Transferase 19 U/L (17-59); Bilirubin,Total 0.6 mg/dL (0.2-1.3); Blood Urea Nitrogen 22 mg/dL (9-20); Calcium 9.1 mg/dL (8.4-10.2); Carbon Dioxide 30 mmol/L (22-30); Chloride 104 mmol/L (98-107); Creatine Kinase 74 U/L (55-170); Estimated CRCL calculation 103 ml/min; Estimated Glomerular Filt Rate > 60; Glucose 94 mg/dL (65-110); Potassium 4.3 mmol/L (3.4-5.0); Sodium 139 mmol/L (137-145)
--- NOTE | 2024-08-21 11:44 | ED.SKABFB ---
HPI - Skin/Abscess/Foreign Bdy General Chief complaint: Skin/Abscess/Foreign Body Stated complaint: weakness, pelvic pain and genital inflammation Time Seen by Provider: 08/21/24 10:19 History of Present Illness HPI narrative: 29-year-old male with history of GERD, RAMYA presents to emergency department for multiple medical complaints. Patient is reporting diffuse generalized weakness for the past few weeks. He has attributed this to his Wellbutrin after cooling symptoms. He contacted his psychiatrist who advised him to discontinue the Wellbutrin yesterday so he has not taken it today. He is reporting weakness to his pelvis. He also notes that he is concerned he may have an infection in his perineum. He denies dysuria, hematuria, testicular pain, anal pain. He reports ?shifting? in his back. He had an injury a couple years ago and states after standing for 2 hours the other day the ?shifting? began. Denies saddle anesthesia, bowel or bladder incontinence, urinary tension, fevers, vomiting. Related Data Home Medications ?Medication ?Instructions ?Recorded ?Confirmed ?Last Taken ?Type esomeprazole magnesium 40 mg 40 mg PO DAILY 02/16/24 05/23/24 Unknown History capsule,delayed release (Nexium) lurasidone 20 mg tablet 10 mg PO DAILY 05/23/24 05/23/24 Unknown History Allergies Allergy/AdvReac Type Severity Reaction Status Date / Time No Known Allergies Allergy Verified 08/19/24 05:24 Review of Systems Review of Systems: All systems reviewed & are unremarkable except as noted in HPI and below PMFSH Past Medical History Medical History Urinary frequency Family History Family History Mother Family history of elevated blood lipids, Onset Age: 46 Father Family history of diabetes mellitus in first degree relative, Onset Age: 48 Social History Social History Social History: Single Smoking status: Former smoker Tobacco type: cigarettes Second hand tobacco smoke exposure: No Smoking end date: 05/07/13 Alcohol intake: never Substance use: never Substance use type: does not use Do You Feel Safe in your Home?: Yes Lack of Transportation: No Lack of Food: Never True Current Housing: I Have Housing Concerned About Future Housing: No Difficulty Paying Gas/Electric Bills: No Difficulty Paying for Meds: No Currently Unemployed: Decline to Answer Education: Associate Degree Difficulty w/ Childcare or Family Care: No Living arrangements: with family Occupation/Education: unemployed Additional occupation/education comments: Pt had to drop out of school due to health issues. Gender identity (if verbalized by the patient): Male Sexual Orientation (if Verbalized by the Patient): Straight or Heterosexual Spiritual care concerns: No Exam Narrative: GENERAL: Anxious-appearing, well-nourished, and in no acute distress. HEAD: Normocephalic, atraumatic. EYES: EOMI. ENT: Nares clear, no rhinorrhea or epistaxis. Mucous membranes moist. NECK: Supple. CHEST: Clear to auscultation. No respiratory distress. HEART: Regular rate and rhythm. No murmur heard. Normal peripheral pulses. ABDOMEN: Soft, nontender, nondistended, normal active bowel sounds. : Chaperoned by Joon Noland and tech Puneet: No erythema, tenderness, warmth, fluctuation, induration to the perineum, testicles or scrotum EXTREMITIES: Normal range of motion. No edema. SKIN: Warm, dry, no rash. NEURO: No focal deficits. Alert and oriented x4. Strength out of 5/5 in BUE and BLE. Sensation intact throughout. Cranial nerves 2-12 intact. Course Vital Signs Vital signs: Vital Signs Temperature 97.8 F 08/21/24 09:31 Pulse Rate 82 08/21/24 09:31 Respiratory Rate 16 08/21/24 09:31 Blood Pressure 153/98 H 08/21/24 09:31 Pulse Oximetry 99 08/21/24 09:31 Oxygen Delivery Room Air 08/21/24 09:31 Temperature 98.0 F 08/21/24 11:21 Pulse Rate 82 08/21/24 11:21 Respiratory Rate 16 08/21/24 11:21 Blood Pressure 152/88 H 08/21/24 11:21 Pulse Oximetry 100 08/21/24 11:21 Oxygen Delivery Room Air 08/21/24 09:31 MDM - Skin/Abscess/Foreign Bdy MDM Narrative Medical decision making narrative: 29-year-old male presents to the emergency department for multiple medical complaints. Patient is reporting generalized weakness for the past few weeks. He has attributed this to his Wellbutrin and contacted his psychiatrist advised to discontinue the Wellbutrin yesterday. Also reporting pelvic weakness and concern for an infection to his perineum. Vitals with elevated blood pressure. Patient is anxious appearing. He is neurovascularly intact and has 5/5 strength throughout. Perineal in exam is unremarkable no evidence of infection or abscess. Lab work shows no leukocytosis or anemia. Chemistries without electrolyte derangements or abnormalities. UA is unremarkable. CK within normal limits. Patient has been evaluated in our ED several times in the past few weeks. Notably yesterday he had a CTA chest, abdomen and pelvis performed which showed no significant abnormalities. Thoracic lumbar spine CT performed 2 days ago which showed minimal degenerative changes of the thoracic spine. I do not feel repeat imaging is warranted today given reassuring exam findings. Patient updated on results. He was advised follow-up with his PCP. Return precautions provided. He is agreeable with the plan verbalized understanding. Discharged in stable condition. Lab Data 08/21/24 11:21 08/21/24 11:21 Labs: Lab Results 08/21/24 Range/Units 11:21 WBC 6.3 (4.5-10.0) K/mm3 RBC 4.96 (4.6-6.20) M/mm3 Hgb 14.9 (14.0-18.0) g/dL Hct 43.0 (42.0-52.0) % MCV 86.7 (80-100) fl MCH 30.0 (26-34) pg MCHC 34.7 (32-36) g/dl RDW 11.9 (11.5-14.5) % Plt Count 223 (150-375) k/mm3 MPV 9.8 (7.4-10.4) fl Immature Gran % (Auto) 0.2 (0-0.5) % Neut % (Auto) 64.0 (45.5-73.1) % Lymph % (Auto) 22.9 (18.3-44.2) % Keith % (Auto) 9.1 H (2.6-8.5) % Eos % (Auto) 3.0 (0-4.4) % Baso % (Auto) 0.8 (0.2-1.2) % Lymph # (Auto) 1.43 (0.9-3.2) K/mm3 Keith # (Auto) 0.6 (0.1-0.6) K/mm3 Eos # (Auto) 0.2 (0-0.3) K/mm3 Baso # (Auto) 0.1 (0.0-0.1) K/mm3 Abs Immat Gran (auto) 0.01 (0.00-0.031) K/mm3 Absolute Neuts (auto) 4.0 (1.3-6.7) K/mm3 Absolute Nucleated RBC 0.000 (0.0-0.012) K/mm3 Nucleated RBC % 0.0 (0.0-0.2) % Sodium 139 (137-145) mmol/L Potassium 4.3 (3.4-5.0) mmol/L Chloride 104 (98-107) mmol/L Carbon Dioxide 30 (22-30) mmol/L Anion Gap 5 (4-12) mmol/L BUN 22 H (9-20) mg/dL Creatinine 0.81 (0.7-1.3) mg/dL Estim Creat Clear Calc 103 ml/min Estimated GFR > 60 (59 - ) Glucose 94 (65-110) mg/dL Calcium 9.1 (8.4-10.2) mg/dL Total Bilirubin 0.6 (0.2-1.3) mg/dL AST 19 (17-59) U/L ALT 15 (6-50) U/L Alkaline Phosphatase 61 (38-126) U/L Total Creatine Kinase 74 (55-170) U/L Total Protein 7.0 (6.3-8.2) g/dL Albumin 4.7 (3.5-5.1) g/dL Urine Color Yellow (Yellow) Urine Appearance Clear (Clear) Urine pH 7.0 (5.0-9.0) Ur Specific [place] 1.018 (1.001-1.035) Urine Protein Negative (Negative) mg/dL Urine Glucose (UA) Negative (Negative) mg/dL Urine Ketones Negative (Negative) mg/dL Ur Blood (Man) Negative (Negative) Urine Nitrate Negative (Negative) Urine Bilirubin Negative (Negative) Urine Urobilinogen 1.0 (<2.0) mg/dL Leukocyte Esterase Rfl Negative (Negative) CAT/UL Discharge Plan Discharge Clinical Impression: Generalized weakness Patient Disposition: Home Condition: Stable Instructions: Antibiotic Form, Weakness (ED) Additional Instructions: Please follow-up with your primary care provider. Return to the emergency department if you develop any new or worsening symptoms. Patient Language: Azerbaijani Prescriptions: No Action esomeprazole magnesium [Nexium] 40 mg Capsule,Delayed Release(Dr/Ec) 40 mg PO DAILY lurasidone 20 mg tablet 10 mg PO DAILY Rx Instructions: must administer with food (at least 350 calories) Follow-up/Referrals: Urban Maza MD [Primary Care Provider] -
== END 2024-08-21 11:55 | disposition home or self-care (01) ==
PROVIDERS: Emergency Provider Physician Assistant; PCP Emergency Medicine
DX: R53.1 Weakness (principal); K21.9 Gastro-esophageal reflux disease without esophagitis; F41.1 Generalized anxiety disorder; Z87.891 Personal history of nicotine dependence; Z79.899 Other long term (current) drug therapy
CPT/HCPCS: 36415; 80053; 81003; 82550; 85025; 99283

== ENCOUNTER 2024-08-24 00:20 | Emergency (ER) | payer OTHER, SELFPAY ==
--- OUTSIDE RECORDS SUMMARY | 2024-08-24 00:21 | XMS_ITS | Clinical Summary ---
Author Organization [facility] Address [address] Thomasn: Epic Prelude ADT [place]IZ[place] MORALES [address] Care Team Providers Care Account Adjuster Name Role Phone Unavailable Primary Care Provider Unavailabl e Social History Tobacco Use Types Packs/Day Years Used Date Smoking Tobacco: Never Assessed Sex and Gender Information Value Date Recorded Sex Assigned at Not on file Legal Sex Male 3:58 AM ENVIRONMENTAL SERVICES FLOOR TECH Gender Identity Not on file Sexual Orientation [...]
--- OUTSIDE RECORDS SUMMARY | 2024-08-24 00:21 | XMS_ITS | Encounter Summary ---
Author Organization [facility] Address [address] [place] [address] Care Team Providers Care Model And Mold Maker Plaster Name Role Phone Unavailable Primary Care Provider [...] on file Legal Sex Male 3:58 AM OUTREACH CLINICIAN Gender Identity Not on file Sexual Orientation Not on file documented as of this encounter Plan of Treatment Not on file documented as of this encounter Visit Diagnoses Not on filedocumented in this encounter
--- OUTSIDE RECORDS SUMMARY | 2024-08-24 00:21 | XMS_ITS | Referral Summary ---
Author Organization [facility] Address [address] [place] [address] Care Team Providers Care Auto Roller Name Role Phone Armando Gaspar MD Primary [...] on file Legal Sex Male 3:32 AM NOTCHING PRESS OPERATOR Gender Identity Not on file Sexual Orientation Not on file Last Filed Vital Signs Vital Sign Reading Time Taken Comments Blood Pressure 110/80 03/15/2021 1:01 PM NOTCHING PRESS OPERATOR Pulse 77 03/15/2021 1:01 PM NOTCHING PRESS OPERATOR Temperature - - Respiratory Rate 12 03/15/2021 1:01 PM NOTCHING PRESS OPERATOR Oxygen Saturation 100% 08/18/2014 11: 30 AM CDT Inhaled Oxygen Concentration - - Weight 63.5 kg (139 lb 15.9 oz) 03/15/2021 1:01 PM NOTCHING PRESS OPERATOR Height 185.4 cm (6' 1 ) 10/04/2017 2:04 PM CDT Body Mass Index 18.47 10/04/2017 2:04 PM CDT Plan of Treatment Not on file Insurance ANTHEM ACCESS CHOICE [place] CHOICE [facility] [place] ACC[place] [employer] Care Teams Auto Roller Relationship Specialty Start Date End Date Armando Gaspar MD [address] [address] PCP - General 08/09/17
--- OUTSIDE RECORDS SUMMARY | 2024-08-24 00:21 | XMS_ITS | Encounter Summary ---
Author Organization [facility] Address [address] [place] [address] Care Team Providers Care Tax Evaluator Name Role Phone Unavailable Primary Care Provider [...] on file Legal Sex Male 3:58 AM AIRLINE RESERVATIONIST Gender Identity Not on file Sexual Orientation Not on file documented as of this encounter Plan of Treatment Not on file documented as of this encounter Visit Diagnoses Not on filedocumented in this encounter
--- OUTSIDE RECORDS SUMMARY | 2024-08-24 00:21 | XMS_ITS | Encounter Summary ---
Author Organization [facility] Address [address] [place] [address] Care Team Providers Care Center Administrator Name Role Phone Unavailable Primary Care Provider [...] on file Legal Sex Male 3:58 AM DRY WALL PLASTERER Gender Identity Not on file Sexual Orientation Not on file documented as of this encounter Plan of Treatment Not on file documented as of this encounter Visit Diagnoses Not on filedocumented in this encounter
--- OUTSIDE RECORDS SUMMARY | 2024-08-24 00:21 | XMS_ITS | Clinical Summary ---
Author Organization [facility] Address [place] [address] Care Team Providers Care Flexible Shaft Winder Name Role Phone Armando Gaspar MD Primary [...] on file Legal Sex Male 3:32 AM WAFER MOUNTER Gender Identity Not on file Sexual Orientation Not on file Obstetrics History Last Filed Vital Signs Vital Sign Reading Time Taken Comments Blood Pressure 110/80 03/15/2021 1:01 PM WAFER MOUNTER Pulse 77 03/15/2021 1:01 PM WAFER MOUNTER Temperature - - Respiratory Rate 12 03/15/2021 1:01 PM WAFER MOUNTER Oxygen Saturation 100% 08/18/2014 11: 30 AM CDT Inhaled Oxygen Concentration - - Weight 63.5 kg (139 lb 15.9 oz) 03/15/2021 1:01 PM WAFER MOUNTER Height 185.4 cm (6' 1 ) 10/04/2017 [...] patient's age to complete this topic Insurance [facility] CHOICE [place] CHO[place] [facility] OPEN ACCESS BL CHOICE [facility] OR [facility] CHOICE [facility] PPO OR [place] [employer] DIS[employer] Care Teams Flexible Shaft Winder Relationship Specialty Start Date End Date Armando Gaspar MD [address] [facility] [address] [place] [address] PCP - General 08/09/17
--- OUTSIDE RECORDS SUMMARY | 2024-08-24 00:21 | XMS_ITS | Encounter Summary ---
Author Organization [facility] Address [address] [place] [address] Care Team Providers Care Drug Coordinator Name Role Phone Unavailable Primary Care Provider Unavailabl e Encounter Details Date Type Department Care Team (Late st Contact Info) Description 01/19/2006 Outpatient Historical HIS MRI DEPT Nicolás Tavares MD [address] [facility] [place] [address] Pain in Joint, Lower Leg (Primary Dx) Social History Tobacco Use Types Packs/Day Years Used Date Smoking Tobacco: Never Assessed Sex and Gender Information Value Date Recorded Sex Assigned at Not on file Legal Sex Male 3:58 AM PROGRESSIVE CARE UNIT REGISTERED NURSE Gender Identity Not on file Sexual Orientation Not on file documented as of this encounter Plan of Treatment Not on file documented as of this encounter Visit Diagnoses Diagnosis Pain in joint, lower leg- Primary documented in this encounter
--- OUTSIDE RECORDS SUMMARY | 2024-08-24 00:21 | XMS_ITS | Encounter Summary ---
Author Organization [facility] Address [address] [place] [address] Care Team Providers Care Outbound Sales Consultant Name Role Phone Unavailable Primary Care Provider [...] on file Legal Sex Male 3:58 AM GRAIN BLENDER Gender Identity Not on file Sexual Orientation Not on file documented as of this encounter Plan of Treatment Not on file documented as of this encounter Visit Diagnoses Not on filedocumented in this encounter
[2024-08-24 00:22] VITALS: BP 161/98; PULSE 88; RESP 20; TEMP 36.8; O2SAT 98
[2024-08-24 01:21] VITALS: RESP 16; O2SAT 98
--- OUTSIDE RECORDS SUMMARY | 2024-08-24 01:24 | XMS_ITS | Clinical Summary ---
Author Organization [facility] Address [facility] [place] [address] Care Team Providers Care Lithographic Retoucher Apprentice Name Role Phone Armando Gaspar MD Primary [...] on file Legal Sex Male 3:32 AM ROLL FORMER Gender Identity Not on file Sexual Orientation Not on file Obstetrics History Last Filed Vital Signs Vital Sign Reading Time Taken Comments Blood Pressure 110/80 03/15/2021 1:01 PM ROLL FORMER Pulse 77 03/15/2021 1:01 PM ROLL FORMER Temperature - - Respiratory Rate 12 03/15/2021 1:01 PM ROLL FORMER Oxygen Saturation 100% 08/18/2014 11: 30 AM CDT Inhaled Oxygen Concentration - - Weight 63.5 kg (139 lb 15.9 oz) 03/15/2021 1:01 PM ROLL FORMER Height 185.4 cm (6' 1 ) 10/04/2017 [...] patient's age to complete this topic Insurance [facility] CHO[facility] Address: [facility] [id number] [place] [address] BL CHOICE [place]F [place] [facility] OPEN ACCESS BL CHOICE [facility] CHOICE [facility] PPO [place] [employer] Care Teams Lithographic Retoucher Apprentice Relationship Specialty Start Date End Date Armando Gaspar MD [address] [facility] [address] [place] [address] PCP - General 08/09/17
--- OUTSIDE RECORDS SUMMARY | 2024-08-24 01:24 | XMS_ITS | Encounter Summary ---
Author Organization [facility] Address [address] [place] [address] Care Team Providers Care Vacuum Evaporation Operator Name Role Phone Unavailable Primary Care Provider Unavailabl e Encounter Details Date Type Department Care Team (Late st Contact Info) Description 01/19/2006 Outpatient Historical HIS MRI DEPT Nicolás Tavares MD [address] [place] [address] Pain in Joint, Lower Leg (Primary Dx) Social History Tobacco Use Types Packs/Day Years Used Date Smoking Tobacco: Never Assessed Sex and Gender Information Value Date Recorded Sex Assigned at Not on file Legal Sex Male 3:58 AM DENTAL PATIENT COORDINATOR Gender Identity Not on file Sexual Orientation Not on file documented as of this encounter Plan of Treatment Not on file documented as of this encounter Visit Diagnoses Diagnosis Pain in joint, lower leg- Primary documented in this encounter
--- OUTSIDE RECORDS SUMMARY | 2024-08-24 01:24 | XMS_ITS | Referral Summary ---
Author Organization [facility] Address [address] [place] [address] Care Team Providers Care Solar Design Engineer Name Role Phone Armando Gaspar MD Primary [...] on file Legal Sex Male 3:32 AM BOOKBINDER CHIEF Gender Identity Not on file Sexual Orientation Not on file Last Filed Vital Signs Vital Sign Reading Time Taken Comments Blood Pressure 110/80 03/15/2021 1:01 PM BOOKBINDER CHIEF Pulse 77 03/15/2021 1:01 PM BOOKBINDER CHIEF Temperature - - Respiratory Rate 12 03/15/2021 1:01 PM BOOKBINDER CHIEF Oxygen Saturation 100% 08/18/2014 11: 30 AM CDT Inhaled Oxygen Concentration - - Weight 63.5 kg (139 lb 15.9 oz) 03/15/2021 1:01 PM BOOKBINDER CHIEF Height 185.4 cm (6' 1 ) 10/04/2017 2:04 PM CDT Body Mass Index 18.47 10/04/2017 2:04 PM CDT Plan of Treatment Not on file Insurance ANTHEM ACCESS CHOICE BL CHOICE [facility] [place] OPEN ACCESS BL CHOICE [place] CHO[place] PR[place] P[place] [employer] Care Teams Solar Design Engineer Relationship Specialty Start Date End Date Armando Gaspar MD [address] [address] PCP - General 08/09/17
--- OUTSIDE RECORDS SUMMARY | 2024-08-24 01:24 | XMS_ITS | Encounter Summary ---
Author Organization [facility] Address [address] [place] [address] Care Team Providers Care Mechanical Engineering Teacher Name Role Phone Unavailable Primary Care Provider [...] on file Legal Sex Male 3:58 AM DAYCARE TEACHER Gender Identity Not on file Sexual Orientation Not on file documented as of this encounter Plan of Treatment Not on file documented as of this encounter Visit Diagnoses Not on filedocumented in this encounter
--- OUTSIDE RECORDS SUMMARY | 2024-08-24 01:24 | XMS_ITS | Clinical Summary ---
Author Organization [facility] Address [address] Thomasn: Epic Prelude ADT AZIZA MORALES [address] Care Team Providers Care Budget Specialist Name Role Phone Unavailable Primary Care Provider Unavailabl e Social History Tobacco Use Types Packs/Day Years Used Date Smoking Tobacco: Never Assessed Sex and Gender Information Value Date Recorded Sex Assigned at Not on file Legal Sex Male 3:58 AM TELEMETRY TECHNICIAN Gender Identity Not on file Sexual [...]
--- OUTSIDE RECORDS SUMMARY | 2024-08-24 01:24 | XMS_ITS | Encounter Summary ---
Author Organization [facility] Address [address] [place] [address] Care Team Providers Care Cotton Converter Name Role Phone Unavailable Primary Care Provider [...] on file Legal Sex Male 3:58 AM SENIOR VICE PRESIDENT Gender Identity Not on file Sexual Orientation Not on file documented as of this encounter Plan of Treatment Not on file documented as of this encounter Visit Diagnoses Not on filedocumented in this encounter
--- OUTSIDE RECORDS SUMMARY | 2024-08-24 01:24 | XMS_ITS | Encounter Summary ---
Author Organization [facility] Address [address] [place] [address] Care Team Providers Care Tailing Machine Operator Name Role Phone Unavailable Primary Care [...] on file Legal Sex Male 3:58 AM SHIPPING/RECEIVING CLERK Gender Identity Not on file Sexual Orientation Not on file documented as of this encounter Plan of Treatment Not on file documented as of this encounter Visit Diagnoses Not on filedocumented in this encounter
--- OUTSIDE RECORDS SUMMARY | 2024-08-24 01:24 | XMS_ITS | Encounter Summary ---
Author Organization [facility] Address [address] [place] [address] Care Team Providers Care Casing Tester Name Role Phone Unavailable Primary Care Provider [...] on file Legal Sex Male 3:58 AM PORTFOLIO MANAGEMENT MARKETING Gender Identity Not on file Sexual Orientation Not on file documented as of this encounter Plan of Treatment Not on file documented as of this encounter Visit Diagnoses Not on filedocumented in this encounter
--- NOTE | 2024-08-24 01:29 | ED.GENADULT ---
HPI - General Adult General Chief complaint: Unspecified Stated complaint: muscle loss Time Seen by Provider: 08/24/24 01:01 History of Present Illness HPI narrative: Patient is a 29-year-old male who presents emergency department for the 4th time this week with multiple various complaints. This time, patient is complaining of muscle loss which he believes is a side effect of his but Wellbutrin so he decided to stop taking it 3 days ago. He is also complaining of issues with his spermatic cord according to go well and requesting additional scans including a DEXA scan. Related Data Home Medications ?Medication ?Instructions ?Recorded ?Confirmed ?Last Taken ?Type esomeprazole magnesium 40 mg 40 mg PO DAILY 02/16/24 05/23/24 Unknown History capsule,delayed release (Nexium) lurasidone 20 mg tablet 10 mg PO DAILY 05/23/24 05/23/24 Unknown History Allergies Allergy/AdvReac Type Severity Reaction Status Date / Time No Known Allergies Allergy Verified 08/24/24 00:28 Review of Systems Review of Systems: All systems are reviewed and are negative unless stated otherwise in the HPI. [facility] Past Medical History Medical History Urinary frequency Family History Family History Mother Family history of elevated blood lipids, Onset Age: 46 Father Family history of diabetes mellitus in first degree relative, Onset Age: 48 Social History Social History Social History: Single Smoking status: Former smoker Tobacco type: cigarettes Second hand tobacco smoke exposure: No Smoking end date: 05/07/13 Alcohol intake: never Substance use: never Substance use type: does not use Do You Feel Safe in your Home?: Yes Lack of Transportation: No Lack of Food: Never True Current Housing: I Have Housing Concerned About Future Housing: No Difficulty Paying Gas/Electric Bills: No Difficulty Paying for Meds: No Currently Unemployed: Decline to Answer Education: Associate Degree Difficulty w/ Childcare or Family Care: No Living arrangements: with family Occupation/Education: unemployed Additional occupation/education comments: Pt had to drop out of school due to health issues. Gender identity (if verbalized by the patient): Male Sexual Orientation (if Verbalized by the Patient): Straight or Heterosexual Spiritual care concerns: No Exam Narrative: General: Alert, awake, afebrile, in no acute distress, extremely anxious. HEENT: PERRL, no rhinorrhea, no post nasal drip, oropharynx clear. Neck: Trachea midline, no JVD, no lymphadenopathy. Cardiovascular: Regular rate and rhythm, no murmurs, rubs or gallops, no peripheral edema. Respiratory: Clear to auscultation bilaterally, no tachypnea, no wheezing, no rhonchi, no rubs, no respiratory distress. Abdomen: Soft, nontender, nondistended, no rebound, no guarding, no peritoneal signs. Musculoskeletal: No joint swelling or deformity, normal muscle tone. Skin: No rashes or petechia, no signs of infection. Psychiatric: Alert and oriented, normal behavior and judgment for situation. Neurological: Alert and oriented to person, place, and time. Follows all commands. No focal deficits, speech is clear and fluent. Course Vital Signs Vital signs: Vital Signs Temperature 98.2 F 08/24/24 00:22 Pulse Rate 88 08/24/24 00:22 Respiratory Rate 20 08/24/24 00:22 Blood Pressure 161/98 H 08/24/24 00:22 Pulse Oximetry 98 08/24/24 00:22 Oxygen Delivery Room Air 08/24/24 00:22 Temperature 98.2 F 08/24/24 00:22 Pulse Rate 88 08/24/24 00:22 Respiratory Rate 16 08/24/24 01:21 Blood Pressure 161/98 H 08/24/24 00:22 Pulse Oximetry 98 08/24/24 01:21 Oxygen Delivery Room Air 08/24/24 00:22 Medical Decision Making MDM Narrative Medical decision making narrative: The patient was evaluated by myself in the emergency department. History is obtained from patient who is an independent historian and physical exam was performed. External medical records were reviewed at this time. Patient was informed that the studies that he is requesting including a DEXA scan are not provided at this facility and that he needs to follow up with his primary care physician to obtain additional imaging studies. Differential diagnosis considerations include generalized anxiety disorder, somatic symptom disorder. Comorbidities impacting this visit include none. I have evaluated and discussed social determinants of health with the patient that could potentially impact subsequent diagnosis and treatment plans. On repeat assessment of the patient, reevaluation revealed that the patient is doing well and is in no acute distress. Patient symptoms have remained stable since he arrived to our emergency department. Repeat vital signs were all reviewed and noted to be stable. Differential diagnosis and treatment plan were discussed with the patient at bedside. Patient agrees with discussion and after shared medical decision making agrees with discharge. All questions were answered to the patient's satisfaction. Patient will follow up with his PCP in 3-5 days. Was provided with our urology referral per his request did. Patient was provided with strict return precautions and instructed to return to the emergency department if any new or worsening symptoms develop. The patient was discharged in stable condition. Vital Signs Vital Signs: Vital Signs Temperature 98.2 F 08/24/24 00:22 Pulse Rate 88 08/24/24 00:22 Respiratory Rate 20 08/24/24 00:22 Blood Pressure 161/98 H 08/24/24 00:22 Pulse Oximetry 98 08/24/24 00:22 Oxygen Delivery Room Air 08/24/24 00:22 Temperature 98.2 F 08/24/24 00:22 Pulse Rate 88 08/24/24 00:22 Respiratory Rate 16 08/24/24 01:21 Blood Pressure 161/98 H 08/24/24 00:22 Pulse Oximetry 98 08/24/24 01:21 Oxygen Delivery Room Air 08/24/24 00:22 Discharge Plan Discharge Clinical Impression: Generalized anxiety disorder Patient Disposition: Home Condition: Improved Instructions: Antibiotic Form Additional Instructions: Please follow-up with your family doctor within the next 3-5 days. Your provided with urologist per your request, call tomorrow to set up a follow-up appointment. Patient Language: Thai Prescriptions: No Action esomeprazole magnesium [Nexium] 40 mg Capsule,Delayed Release(Dr/Ec) 40 mg PO DAILY lurasidone 20 mg tablet 10 mg PO DAILY Rx Instructions: must administer with food (at least 350 calories) Follow-up/Referrals: Colton David MD [Physician] - 3 Days Urban Maza MD [Primary Care Provider] - 3 Days Time of Disposition: 01:37
[2024-08-24 02:08] VITALS: BP 159/90; PULSE 81; RESP 17; O2SAT 99
[2024-08-24 02:13] VITALS: BP 159/90; PULSE 81; RESP 17; O2SAT 99
== END 2024-08-24 02:15 | disposition home or self-care (01) ==
PROVIDERS: Emergency Provider Emergency Medicine; PCP Emergency Medicine
DX: F41.1 Generalized anxiety disorder (principal)
CPT/HCPCS: 99281

== ENCOUNTER 2024-11-03 13:16 | Outpatient (CLI) | payer OTHER, SELFPAY ==
--- OUTSIDE RECORDS SUMMARY | 2024-11-03 13:41 | XMS_ITS | Encounter Summary ---
Author Organization [facility] Address 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
--- OUTSIDE RECORDS SUMMARY | 2024-11-03 13:41 | XMS_ITS | Referral Summary ---
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 Gender Identity Not on file Sexual Orientation Not on file Last Filed Vital Signs Vital Sign Reading Time Taken Comments Blood Pressure 110/80 03/15/2021 1:01 PM IRRIGATION TECHNICIAN Pulse 77 03/15/2021 1:01 PM IRRIGATION TECHNICIAN Temperature - - Respiratory Rate 12 03/15/2021 1:01 PM IRRIGATION TECHNICIAN Oxygen Saturation 100% 08/18/2014 11: 30 AM CDT Inhaled Oxygen Concentration - - Weight 63.5 kg (139 lb 15.9 oz) 03/15/2021 1:01 PM IRRIGATION TECHNICIAN Height 185.4 cm (6' 1) 10/04/2017 2:04 PM CDT Body Mass Index 18.47 10/04/2017 2:04 PM CDT Plan of Treatment Not on file Insurance ANTHEM ACCESS CHOICE [place] CHOICE [facility] [place] Care Teams Environmental Health Technician Relationship Specialty Start Date End Date Armando Gaspar MD [address] [address] PCP - General 08/09/17
--- OUTSIDE RECORDS SUMMARY | 2024-11-03 13:41 | XMS_ITS | Encounter Summary ---
Author Organization [facility] Address 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
--- OUTSIDE RECORDS SUMMARY | 2024-11-03 13:41 | XMS_ITS | Encounter Summary ---
Author Organization [facility] Address 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
--- OUTSIDE RECORDS SUMMARY | 2024-11-03 13:41 | XMS_ITS | Clinical Summary ---
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 Gender Identity Not on file Sexual Orientation Not on file Obstetrics History Last Filed Vital Signs Vital Sign Reading Time Taken Comments Blood Pressure 110/80 03/15/2021 1:01 PM SPECIAL ASSETS OFFICER Pulse 77 03/15/2021 1:01 PM SPECIAL ASSETS OFFICER Temperature - - Respiratory Rate 12 03/15/2021 1:01 PM SPECIAL ASSETS OFFICER Oxygen Saturation 100% 08/18/2014 11: 30 AM CDT Inhaled Oxygen Concentration - - Weight 63.5 kg (139 lb 15.9 oz) 03/15/2021 1:01 PM SPECIAL ASSETS OFFICER Height 185.4 cm (6' 1) 10/04/2017 2:04 PM CDT Body Mass Index 18.47 10/04/2017 2:04 PM CDT Plan of Treatment Health Maintenance Due Date Last Done Comments Depression Screening 1994 Hepatitis C Screening 1994 DTaP/Tdap/Td Vaccine (1 - Tdap) 2005 Varicella Vaccines (1 of 2 - 13+ 2-dose series) 2007 Hepatitis B Screening 2012 Regular Well Visit/Exam 18-64 2012 Influenza Vaccine (Season Ended) 2025 HPV Vaccines Aged Out No longer eligi ble based on patient's age to complete this topic Pneumococcal vaccine <65 Aged Out No longer eligible based on patient's age to complete this topic Insurance [facility] CHOICE [place] CHO[place] [facility] OPEN ACCESS BL [facility] PPO IN [place] BUREAU OF DISABILITY Care Teams Pound Attendant Relationship Specialty Start Date End Date Armando Gaspar MD [address] [facility] [address] [place] [address] PCP - General 08/09/17
--- OUTSIDE RECORDS SUMMARY | 2024-11-03 13:41 | XMS_ITS | Clinical Summary ---
Author Organization [facility] Address [address] 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
--- OUTSIDE RECORDS SUMMARY | 2024-11-03 13:41 | XMS_ITS | Encounter Summary ---
Author Organization [facility] Address 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
--- OUTSIDE RECORDS SUMMARY | 2024-11-03 13:41 | XMS_ITS | Encounter Summary ---
Author Organization [facility] Address 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
--- NOTE | 2024-11-03 15:00 | NEURO_ITS ---
Impression: # Complains of generalized weakness following Wellbutrin taken for 2 weeks. ? # No Carpal Tunnel Syndrome ? # Right Ulnar neuropathy across the elbow ? # No evidence of generalized neuropathy ? # Normal Needle/EMG exam with no evidence of myopathic myotonic or neurogenic changes ? # Clinical correlation recommended Nerve Conduction Studies ?Stim Site NR Peak (ms) P-T Amp (?V) Site1 Site2 Delta-P (ms) Dist (cm) Alfonzo (m/s) Left Median Anti Sensory (2-3nd Digit) Wrist ? 3.5 96.1 Wrist 2-3nd Digit 3.5 14.0 40 Wrist ? 3.5 89.0 Wrist 2-3nd Digit 3.5 14.0 40 Right Median Anti Sensory (2-3nd Digit) Wrist ? 3.1 56.1 Wrist 2-3nd Digit 3.1 14.0 45 Wrist ? 2.9 61.1 Wrist 2-3nd Digit 3.1 14.0 45 Left Radial Anti Sensory (Base 1st Digit) Wrist ? 2.1 40.4 Wrist Base 1st Digit 2.1 0.0 Right Radial Anti Sensory (Base 1st Digit) Wrist ? 2.7 29.3 Wrist Base 1st Digit 2.7 0.0 Left Sup Fibular Anti Sensory (Ant Lat Mall) 14 cm ? 3.0 18.7 14 cm Ant Lat Mall 3.0 16.0 53 Right Sup Fibular Anti Sensory (Ant Lat Mall) 14 cm ? 3.0 29.3 14 cm Ant Lat Mall 3.0 16.0 53 Left Sural Anti Sensory (Lat Mall) Calf ? 3.4 15.3 Calf Lat Mall 3.4 16.0 47 Right Sural Anti Sensory (Lat Mall) Calf ? 3.8 16.1 Calf Lat Mall 3.8 16.0 42 Left Ulnar Anti Sensory (5th Digit) Wrist ? 3.1 74.3 Wrist 5th Digit 3.1 14.0 45 Right Ulnar Anti Sensory (5th Digit) Wrist ? 2.7 85.5 Wrist 5th Digit 2.7 14.0 52 ?Stim Site NR Onset (ms) O-P Amp (mV) Site1 Site2 Delta-0 (ms) Dist (cm) Alfonzo (m/s) Left Median Motor (Abd Poll Brev) Wrist ? 2.6 3.6 Elbow Wrist 5.8 32.0 55 Elbow ? 8.4 2.8 Right Median Motor (Abd Poll Brev) Wrist ? 3.8 3.3 Elbow Wrist 5.4 29.0 54 Elbow ? 9.2 3.1 Left Peroneal Motor (Vastus Med) Ankle ? 4.2 2.6 Popit Ankle 8.8 44.0 50 Popit ? 13.0 2.0 Right Peroneal Motor (Vastus Med) Ankle ? 3.4 3.8 Popit Ankle 7.9 39.0 49 Popit ? 11.3 3.2 Left Tibial Motor (Abd Waters Brev) Ankle ? 3.8 5.8 Knee Ankle 8.5 44.0 52 Knee ? 12.3 5.3 Right Tibial Motor (Abd Waters Brev) Ankle ? 3.9 3.7 Knee Ankle 8.5 44.0 52 Knee ? 12.4 3.5 Left Ulnar Motor (Abd Dig Minimi) Wrist ? 3.8 8.8 A Elbow Wrist 5.3 30.0 57 A Elbow ? 9.1 7.2 B Elbow Wrist 4.5 23.0 51 B Elbow ? 8.3 5.1 Right Ulnar Motor (Abd Dig Minimi) Wrist ? 3.0 9.0 A Elbow Wrist 5.9 29.0 49 A Elbow ? 8.9 7.0 B Elbow Wrist 4.0 23.0 58 B Elbow ? 7.0 6.2 Electromyography ?Side Muscle Nerve Root Ins Act Fibs Amp Dur Recrt Comment Right 1stDorInt Ulnar C8-T1 Nml Nml Nml Nml Nml Right Ext Indicis Radial (Post Int) C7-8 Nml Nml Nml Nml Nml Right Ext Digitorum Radial (Post Int) C7-8 Nml Nml Nml Nml Nml Right BrachioRad Radial C5-6 Nml Nml Nml Nml Nml Right PronatorTeres Median C6-7 Nml Nml Nml Nml Nml Right Abd Poll Brev Median C8-T1 Nml Nml Nml Nml Nml Right ABD Dig Min Ulnar C8-T1 Nml Nml Nml Nml Nml Right FlexPolLong Median (Ant Int) C7-8 Nml Nml Nml Nml Nml Right Abd Poll Long Radial (Post Int) C7-8 Nml Nml Nml Nml Nml Right AntTibialis Dp Br Fibular L4-5 Nml Nml Nml Nml Nml Right Gastroc Tibial S1-2 Nml Nml Nml Nml Nml Right Fibularis Long Sup Br Fibular L5-S1 Nml Nml Nml Nml Nml Right Flex Dig Long Tibial L5-S2 Nml Nml Nml Nml Nml Right Ext Dig Brev Dp Br Fibular L5, S1 Nml Nml Nml Nml Nml Right QuadratusFem QuadFemoris L4-5, S1 Nml Nml Nml Nml Nml Left AntTibialis Dp Br Fibular L4-5 Nml Nml Nml Nml Nml Left Gastroc Tibial S1-2 Nml Nml Nml Nml Nml Left Fibularis Long Sup Br Fibular L5-S1 Nml Nml Nml Nml Nml Left Flex Dig Long Tibial L5-S2 Nml Nml Nml Nml Nml Left Ext Dig Brev Dp Br Fibular L5, S1 Nml Nml Nml Nml Nml Left QuadratusFem QuadFemoris L4-5, S1 Nml Nml Nml Nml Nml Left 1stDorInt Ulnar C8-T1 Nml Nml Nml Nml Nml Left Ext Indicis Radial (Post Int) C7-8 Nml Nml Nml Nml Nml Left Ext Digitorum Radial (Post Int) C7-8 Nml Nml Nml Nml Nml Left BrachioRad Radial C5-6 Nml Nml Nml Nml Nml Left PronatorTeres Median C6-7 Nml Nml Nml Nml Nml Left Abd Poll Brev Median C8-T1 Nml Nml Nml Nml Nml Left ABD Dig Min Ulnar C8-T1 Nml Nml Nml Nml Nml Left FlexPolLong Median (Ant Int) C7-8 Nml Nml Nml Nml Nml Left Abd Poll Long Radial (Post Int) C7-8 Nml Nml Nml Nml Nml
== END 2024-11-03 13:17 | disposition home or self-care (01) ==
PROVIDERS: PCP Emergency Medicine; Visit Provider Emergency Medicine
DX: G56.21 Lesion of ulnar nerve, right upper limb (principal)
CPT/HCPCS: 95886; 95913